=== PATIENT | female | born 1940 ===

== ENCOUNTER 2020-02-18 09:08 | Outpatient (CLI) | payer MEDICARE, SELFPAY ==
[2020-02-18 10:34] LABS: Thyroid Stimulating Hormone 0.15 uIU/mL (0.36-3.74)
== END 2020-02-18 09:09 | disposition home or self-care (01) ==
PROVIDERS: PCP Nurse Practitioner Family; Visit Provider Nurse Practitioner Family
DX: E03.9 Hypothyroidism, unspecified (principal)
CPT/HCPCS: 36415; 84443

== ENCOUNTER 2020-04-12 07:41 | Outpatient (CLI) | payer MEDICARE, SELFPAY | END 2020-04-12 07:42 | disposition home or self-care (01) | LOC: CHSLAB 07:43 | PROVIDERS: PCP Nurse Practitioner Family; Visit Provider Nurse Practitioner Family | DX: E03.8 Other specified hypothyroidism (principal) | CPT/HCPCS: 36415; 84443 ==

== ENCOUNTER 2020-04-21 07:24 | Outpatient (CLI) | payer MEDICARE, SELFPAY ==
[2020-04-21 07:40] LABS: Hematocrit 38.3 % (35.0-42.0); Hemoglobin 12.4 g/dL (11.7-13.8); Immature Platelet Fraction Pct 1.7 % (1.0-7.0); Immature Reticulocyte Fraction 11.5 % (2.0-16.52); Mean Corpuscular HGB Conc 32.4 g/dL (32.0-36.0); Mean Corpuscular Hemoglobin 31.7 pg (27.0-31.0); Mean Platelet Volume 9.5 fl (9.2-11.8); Platelet Count Result 279 K/mm3 (150-420); Red Blood Count 3.91 M/mm3 (4.20-5.40); Red Cell Distribution Width 13.5 % (11.6-14.4); Reticulocyte Hemoglobin Conten 34.5 pg (28.0-35.0); Reticulocyte Percent 2.04 % (0.50-1.50); Reticulocytes Absolute 0.08 M/mm3 (0.02-0.1); White Blood Count 3.5 K/mm3 (4.8-10.8)
[2020-04-21 08:27] LABS: Band Neutrophils Percent 0 % (0-6); Basophils Absolute Manual 0.03 K/mm3 (0-0.1); Basophils Percent Manual 1 % (0-1); Eosinophils Absolute Manual 0.24 K/mm3 (0.02-0.5); Eosinophils Percent Manual 7 % (1-6); Lymphocytes Absolute Manual 0.77 K/mm3 (1.1-4.5); Lymphocytes Percent Manual 22 % (18-44); Monocytes Absolute Manual 0.73 K/mm3 (0.1-0.90); Monocytes Percent Manual 21 % (3-9); Neutrophils Absolute Manual 1.71 K/mm3 (1.7-7.2); Neutrophils Percent Manual 49 % (46-73); Total Cells Counted 100
[2020-04-21 08:28] LABS: Platelet Estimate Adequate (Adequate)
[2020-04-21 09:10] LABS: Ferritin 49 ng/mL (8-252); Iron 37 ug/dL (50-170); Percent Iron Saturation 10 % (12-57)
== END 2020-04-21 07:25 | disposition home or self-care (01) ==
LOC: CHSLAB 07:27
PROVIDERS: PCP Nurse Practitioner Family
DX: C90.02 Multiple myeloma in relapse (principal)
CPT/HCPCS: 36415; 82728; 83540; 83550; 85025; 85046; 85055

== ENCOUNTER 2020-08-23 09:16 | Outpatient (CLI) | payer MEDICARE, SELFPAY ==
[2020-08-23 10:09] LABS: Thyroid Stimulating Hormone 0.16 uIU/mL (0.36-3.74)
== END 2020-08-23 09:17 | disposition home or self-care (01) ==
LOC: CHSLAB 09:18
PROVIDERS: PCP Nurse Practitioner Family; Visit Provider Nurse Practitioner Family
DX: E03.9 Hypothyroidism, unspecified (principal)
CPT/HCPCS: 36415; 84443

== ENCOUNTER 2020-10-19 08:00 | Outpatient (CLI) | payer MEDICARE, SELFPAY ==
[2020-10-19 09:49] LABS: Thyroid Stimulating Hormone 1.35 uIU/mL (0.36-3.74)
== END 2020-10-19 08:01 | disposition home or self-care (01) ==
LOC: CHSLAB 08:02
PROVIDERS: PCP Nurse Practitioner Family; Visit Provider Nurse Practitioner Family
DX: E03.9 Hypothyroidism, unspecified (principal)
CPT/HCPCS: 36415; 84443

== ENCOUNTER 2021-02-28 08:54 | Outpatient (CLI) | payer MEDICARE, SELFPAY ==
--- NOTE | 2021-02-28 09:31 | PC.NURSE ---
Pt to OP infusion center for blood draw from port. Pt tolerated well. Discharged to home ambulatory per self.
[2021-02-28 10:20] LABS: Basophils Absolute Auto 0.02 K/mm3 (0.00-0.10); Basophils Percent Auto 0.5 % (0.0-1.0); Eosinophils Absolute Auto 0.15 K/mm3 (0.02-0.50); Eosinophils Percent Auto 3.6 % (1.0-6.0); Hematocrit 36.6 % (35.0-42.0); Hemoglobin 12.7 g/dL (11.7-13.8); Immature Granulocyte Absolute 0.02 K/mm3 (0.00-0.00); Immature Granulocyte Percent A 0.5 % (0.0-0.0); Lymphocytes Absolute Auto 0.62 K/mm3 (1.10-4.50); Lymphocytes Percent Auto 15.1 % (18.0-42.0); Mean Corpuscular HGB Conc 34.7 g/dL (32.0-36.0); Mean Corpuscular Hemoglobin 33.1 pg (27.0-31.0); Mean Corpuscular Volume 95.3 fL (78.0-102.0); Mean Platelet Volume 10.4 fl (9.2-11.8); Monocytes Absolute Auto 0.56 K/mm3 (0.10-0.90); Monocytes Percent Auto 13.6 % (2.0-11.0); Neutrophils Absolute Auto 2.7 K/mm3 (1.7-7.2); Neutrophils Percent Auto 66.7 % (50.0-70.0); Platelet Count Result 243 K/mm3 (150-420); Red Blood Count 3.84 M/mm3 (4.20-5.40); White Blood Count 4.1 K/mm3 (4.8-10.8)
[2021-02-28 10:36] LABS: Alanine Aminotransferase 30 U/L (14-59); Albumin Level 3.4 g/dL (3.4-5.0); Alkaline Phosphatase 104 U/L (46-116); Anion Gap 13 mmol/L (8-16); Aspartate Amino Transferase 21 U/L (15-37); Bilirubin,Total 0.6 mg/dL (0.00-1.00); Blood Urea Nitrogen 21 mg/dL (7-18); Calcium 8.4 mg/dL (8.5-10.1); Carbon Dioxide 27 mmol/L (21-32); Chloride 105 mmol/L (98-108); Estimated Glomerular Filt Rate > 60; Glucose 105 mg/dL (70-99); Lactate Dehydrogenase 182 U/L (81-234); Osmolality Calculated 303 mOsm/kg (285-295); Potassium 3.9 mmol/L (3.5-5.1); Sodium 145 mmol/L (136-145); Total Protein 6.5 g/dL (6.4-8.2)
[2021-03-03 05:18] LABS: Kappa\\Lambda Light Chains 19.85 (0.26-1.65); Lambda Light Chain 2.6 mg/L (5.7-26.3)
[2021-03-03 10:31] LABS: Immunoglobulin A 28 mg/dL (70-320); Immunoglobulin G 1051 mg/dL (600-1540); Immunoglobulin M 18 mg/dL (50-300)
[2021-03-03 14:45] LABS: Abnormal Protein Band 1 0.8 g/dL; Albumin 3.6 g/dL (3.8-4.8); Alpha 1 Globulin 0.3 g/dL (0.2-0.3); Alpha 2 Globulin 0.8 g/dL (0.5-0.9); Beta 1 Globulin 0.5 g/dL (0.4-0.6); Protein, Total 6.4 g/dL (6.1-8.1)
== END 2021-02-28 08:55 | disposition home or self-care (01) ==
PROVIDERS: PCP Nurse Practitioner Family
DX: C90.00 Multiple myeloma not having achieved remission (principal)
CPT/HCPCS: 36415; 80053; 82784; 83615; 83883; 84155; 84165; 84550; 85025

== ENCOUNTER 2021-04-03 08:53 | Outpatient (CLI) | payer MEDICARE, SELFPAY ==
[2021-04-03 09:25] LABS: Hematocrit 36.2 % (35.0-42.0); Hemoglobin 12.1 g/dL (11.7-13.8); Mean Corpuscular HGB Conc 33.4 g/dL (32.0-36.0); Mean Corpuscular Hemoglobin 32.7 pg (27.0-31.0); Mean Corpuscular Volume 97.8 fL (78.0-102.0); Mean Platelet Volume 9.5 fl (9.2-11.8); Platelet Count Result 272 K/mm3 (150-420); Red Cell Distribution Width 13.2 % (11.6-14.4); White Blood Count 3.5 K/mm3 (4.8-10.8)
[2021-04-03 10:25] LABS: Alanine Aminotransferase 52 U/L (14-59); Albumin Level 3.3 g/dL (3.4-5.0); Alkaline Phosphatase 143 U/L (46-116); Anion Gap 11 mmol/L (8-16); Aspartate Amino Transferase 36 U/L (15-37); Bilirubin,Total 0.4 mg/dL (0.00-1.00); Blood Urea Nitrogen 25 mg/dL (7-18); Calcium 8.4 mg/dL (8.5-10.1); Carbon Dioxide 27 mmol/L (21-32); Chloride 107 mmol/L (98-108); Estimated Glomerular Filt Rate 58; Glucose 136 mg/dL (70-99); Lactate Dehydrogenase 199 U/L (81-234); Osmolality Calculated 306 mOsm/kg (285-295); Potassium 4.2 mmol/L (3.5-5.1); Sodium 145 mmol/L (136-145); Total Protein 7.2 g/dL (6.4-8.2); Uric Acid 4.9 mg/dL (2.6-6.0)
[2021-04-03 10:45] LABS: Band Neutrophils Percent 1 % (0-6); Basophils Absolute Manual 0.14 K/mm3 (0-0.1); Basophils Percent Manual 4 % (0-1); Eosinophils Absolute Manual 0.07 K/mm3 (0.02-0.5); Eosinophils Percent Manual 2 % (1-6); Lymphocytes Absolute Manual 0.59 K/mm3 (1.1-4.5); Lymphocytes Percent Manual 17 % (18-44); Monocytes Absolute Manual 0.38 K/mm3 (0.1-0.90); Monocytes Percent Manual 11 % (3-9); Neutrophils Absolute Manual 2.31 K/mm3 (1.7-7.2); Neutrophils Percent Manual 65 % (46-73); Total Cells Counted 100
[2021-04-03 10:46] LABS: Large Platelets Present; Platelet Estimate Adequate (Adequate)
[2021-04-05 20:46] LABS: Immunoglobulin A 28 mg/dL (70-320); Immunoglobulin G 1253 mg/dL (600-1540); Immunoglobulin M 17 mg/dL (50-300)
[2021-04-05 23:20] LABS: Kappa\\Lambda Light Chains 27.35 (0.26-1.65); Lambda Light Chain 2.6 mg/L (5.7-26.3)
[2021-04-07 05:45] LABS: Abnormal Protein Band 1 0.9 g/dL; Albumin 3.3 g/dL (3.8-4.8); Alpha 1 Globulin 0.3 g/dL (0.2-0.3); Alpha 2 Globulin 0.9 g/dL (0.5-0.9); Beta 1 Globulin 0.4 g/dL (0.4-0.6); Gamma Globulin 1.1 g/dL (0.8-1.7); Protein, Total 6.2 g/dL (6.1-8.1)
== END 2021-04-03 08:54 | disposition home or self-care (01) ==
LOC: CHSLAB 08:58 → CHSTREATRM 09:04
PROVIDERS: PCP Nurse Practitioner Family
DX: C90.00 Multiple myeloma not having achieved remission (principal)
CPT/HCPCS: 36415; 80053; 82784; 83615; 83883; 84155; 84165; 84550; 85025

== ENCOUNTER 2021-07-25 10:20 | Outpatient (CLI) | payer MEDICARE, SELFPAY ==
[2021-07-25 11:15] LABS: Free T4 Free Thyroxine 1.12 ng/dL (0.76-1.46); Thyroid Stimulating Hormone 0.75 uIU/mL (0.36-3.74)
== END 2021-07-25 10:21 | disposition home or self-care (01) ==
LOC: CHSLAB 10:22
PROVIDERS: PCP Nurse Practitioner Family; Visit Provider Nurse Practitioner Family
DX: E03.9 Hypothyroidism, unspecified (principal)
CPT/HCPCS: 36415; 84439; 84443

== ENCOUNTER 2022-01-14 08:13 | Outpatient (CLI) | payer MEDICARE, SELFPAY ==
[2022-01-14 08:26] LABS: Hematocrit 33.3 % (35.0-42.0); Hemoglobin 11.1 g/dL (11.7-13.8); Mean Corpuscular HGB Conc 33.3 g/dL (32.0-36.0); Mean Corpuscular Hemoglobin 34.2 pg (27.0-31.0); Mean Corpuscular Volume 102.5 fL (78.0-102.0); Mean Platelet Volume 9.6 fl (9.2-11.8); Platelet Count Result 178 K/mm3 (150-420); Red Blood Count 3.25 M/mm3 (4.20-5.40); Red Cell Distribution Width 13.5 % (11.6-14.4); White Blood Count 2.9 K/mm3 (4.8-10.8)
[2022-01-14 08:44] LABS: Band Neutrophils Percent 0 % (0-6); Lymphocytes Absolute Manual 0.58 K/mm3 (1.1-4.5); Lymphocytes Percent Manual 20 % (18-44); Monocytes Percent Manual 21 % (3-9); Neutrophils Absolute Manual 1.59 K/mm3 (1.7-7.2); Neutrophils Percent Manual 55 % (46-73); Total Cells Counted 100
[2022-01-14 08:45] LABS: Basophils Absolute Manual 0.02 K/mm3 (0-0.1); Basophils Percent Manual 1 % (0-1); Eosinophils Absolute Manual 0.08 K/mm3 (0.02-0.5); Eosinophils Percent Manual 3 % (1-6); Platelet Estimate Adequate (Adequate)
== END 2022-01-14 08:14 | disposition home or self-care (01) ==
LOC: CHSLAB 08:16
PROVIDERS: PCP Nurse Practitioner Family
DX: C90.00 Multiple myeloma not having achieved remission (principal)
CPT/HCPCS: 36415; 85025

== ENCOUNTER 2022-02-28 08:33 | Outpatient (CLI) | payer MEDICARE, SELFPAY ==
[2022-02-28 09:10] LABS: Basophils Absolute Auto 0.02 K/mm3 (0.00-0.10); Basophils Percent Auto 0.5 % (0.0-1.0); Eosinophils Absolute Auto 0.04 K/mm3 (0.02-0.50); Hematocrit 29.1 % (35.0-42.0); Immature Granulocyte Absolute 0.01 K/mm3 (0.00-0.00); Immature Granulocyte Percent A 0.2 % (0.0-0.0); Lymphocytes Absolute Auto 0.47 K/mm3 (1.10-4.50); Lymphocytes Percent Auto 11.2 % (18.0-42.0); Mean Corpuscular HGB Conc 34.4 g/dL (32.0-36.0); Mean Corpuscular Hemoglobin 34.8 pg (27.0-31.0); Mean Corpuscular Volume 101.4 fL (78.0-102.0); Mean Platelet Volume 10.1 fl (9.2-11.8); Monocytes Percent Auto 14.4 % (2.0-11.0); Neutrophils Percent Auto 72.7 % (50.0-70.0); Platelet Count Result 182 K/mm3 (150-420); Red Blood Count 2.87 M/mm3 (4.20-5.40); Red Cell Distribution Width 12.8 % (11.6-14.4); White Blood Count 4.2 K/mm3 (4.8-10.8)
[2022-02-28 09:36] LABS: Alanine Aminotransferase 45 U/L (14-59); Albumin Level 3.2 g/dL (3.4-5.0); Alkaline Phosphatase 128 U/L (46-116); Anion Gap 6 mmol/L (8-16); Aspartate Amino Transferase 31 U/L (15-37); Bilirubin,Total 0.5 mg/dL (0.00-1.00); Blood Urea Nitrogen 33 mg/dL (7-18); Calcium 8.4 mg/dL (8.5-10.1); Carbon Dioxide 28 mmol/L (21-32); Chloride 107 mmol/L (98-108); Estimated Glomerular Filt Rate 46; Glucose 101 mg/dL (70-99); Lactate Dehydrogenase 176 U/L (81-234); Osmolality Calculated 299 mOsm/kg (285-295); Potassium 4.1 mmol/L (3.5-5.1); Sodium 141 mmol/L (136-145); Total Protein 6.4 g/dL (6.4-8.2)
--- NOTE | 2022-02-28 09:52 | PC.NURSE ---
Called to lab to draw blood from port. Good blood return. Labs drawn. Tolerated well. Safe exit of lab.
[2022-03-03 23:26] LABS: Abnormal Protein Band 1 0.2 g/dL; Albumin 3.4 g/dL (3.8-4.8); Alpha 1 Globulin 0.3 g/dL (0.2-0.3); Alpha 2 Globulin 0.8 g/dL (0.5-0.9); Beta 1 Globulin 0.4 g/dL (0.4-0.6); Gamma Globulin 0.8 g/dL (0.8-1.7); Protein, Total 5.9 g/dL (6.1-8.1)
[2022-03-04 09:24] LABS: Kappa\\Lambda Light Chains 3.64 (0.26-1.65); Lambda Light Chain 9.6 mg/L (5.7-26.3)
[2022-03-04 16:29] LABS: Immunoglobulin A 112 mg/dL (70-320); Immunoglobulin G 847 mg/dL (600-1540); Immunoglobulin M 26 mg/dL (50-300)
== END 2022-02-28 08:34 | disposition home or self-care (01) ==
LOC: CHSTREATRM 08:40
PROVIDERS: PCP Nurse Practitioner Family
DX: C90.00 Multiple myeloma not having achieved remission (principal)
CPT/HCPCS: 36415; 36592; 80053; 82784; 83615; 83883; 84155; 84165; 85025

== ENCOUNTER 2022-04-26 08:14 | Outpatient (CLI) | payer MEDICARE, SELFPAY ==
[2022-04-26 08:41] LABS: Hematocrit 30.2 % (35.0-42.0); Hemoglobin 10.3 g/dL (11.7-13.8); Mean Corpuscular HGB Conc 34.1 g/dL (32.0-36.0); Mean Corpuscular Hemoglobin 35.9 pg (27.0-31.0); Mean Corpuscular Volume 105.2 fL (78.0-102.0); Mean Platelet Volume 10.2 fl (9.2-11.8); Platelet Count Result 186 K/mm3 (150-420); Red Blood Count 2.87 M/mm3 (4.20-5.40); Red Cell Distribution Width 12.6 % (11.6-14.4); White Blood Count 2.4 K/mm3 (4.8-10.8)
[2022-04-26 08:59] LABS: Alanine Aminotransferase 50 U/L (14-59); Albumin Level 3.4 g/dL (3.4-5.0); Alkaline Phosphatase 125 U/L (46-116); Anion Gap 8 mmol/L (8-16); Aspartate Amino Transferase 39 U/L (15-37); Bilirubin,Total 0.4 mg/dL (0.00-1.00); Blood Urea Nitrogen 29 mg/dL (7-18); Calcium 8.7 mg/dL (8.5-10.1); Carbon Dioxide 28 mmol/L (21-32); Chloride 105 mmol/L (98-108); Estimated Glomerular Filt Rate 47; Glucose 137 mg/dL (70-99); Lactate Dehydrogenase 196 U/L (81-234); Osmolality Calculated 299 mOsm/kg (285-295); Sodium 141 mmol/L (136-145); Total Protein 6.4 g/dL (6.4-8.2)
[2022-04-26 11:26] LABS: Band Neutrophils Percent 0 % (0-6); Basophils Percent Manual 0 % (0-1); Eosinophils Percent Manual 0 % (1-6); Lymphocytes Absolute Manual 0.57 K/mm3 (1.1-4.5); Lymphocytes Percent Manual 24 % (18-44); Monocytes Absolute Manual 0.38 K/mm3 (0.1-0.90); Monocytes Percent Manual 16 % (3-9); Neutrophils Absolute Manual 1.44 K/mm3 (1.7-7.2); Neutrophils Percent Manual 60 % (46-73); Platelet Estimate Adequate (Adequate); Total Cells Counted 100
[2022-04-30 21:42] LABS: Kappa\\Lambda Light Chains 4.22 (0.26-1.65); Lambda Light Chain 8.9 mg/L (5.7-26.3)
[2022-04-30 23:45] LABS: Abnormal Protein Band 1 0.3 g/dL; Albumin 3.7 g/dL (3.8-4.8); Alpha 1 Globulin 0.3 g/dL (0.2-0.3); Alpha 2 Globulin 0.8 g/dL (0.5-0.9); Beta 1 Globulin 0.4 g/dL (0.4-0.6); Gamma Globulin 0.8 g/dL (0.8-1.7); Protein, Total 6.2 g/dL (6.1-8.1)
[2022-05-01 14:06] LABS: Immunoglobulin A 99 mg/dL (70-320); Immunoglobulin G 848 mg/dL (600-1540); Immunoglobulin M 38 mg/dL (50-300)
== END 2022-04-26 08:15 | disposition home or self-care (01) ==
LOC: CHSLAB 08:20
PROVIDERS: PCP Nurse Practitioner Family
DX: C90.00 Multiple myeloma not having achieved remission (principal)
CPT/HCPCS: 36415; 80053; 82784; 83615; 83883; 84155; 84165; 85025

== ENCOUNTER 2022-06-19 07:42 | Outpatient (CLI) | payer MEDICARE, SELFPAY ==
[2022-06-19 08:07] LABS: Hematocrit 31.6 % (35.0-42.0); Hemoglobin 10.7 g/dL (11.7-13.8); Mean Corpuscular HGB Conc 33.9 g/dL (32.0-36.0); Mean Corpuscular Hemoglobin 35.7 pg (27.0-31.0); Mean Corpuscular Volume 105.3 fL (78.0-102.0); Mean Platelet Volume 9.7 fl (9.2-11.8); Platelet Count Result 202 K/mm3 (150-420); Red Cell Distribution Width 12.7 % (11.6-14.4); White Blood Count 3.1 K/mm3 (4.8-10.8)
[2022-06-19 08:54] LABS: Alanine Aminotransferase 65 U/L (14-59); Albumin Level 3.5 g/dL (3.4-5.0); Alkaline Phosphatase 138 U/L (46-116); Anion Gap 7 mmol/L (8-16); Aspartate Amino Transferase 37 U/L (15-37); Bilirubin,Total 0.5 mg/dL (0.00-1.00); Blood Urea Nitrogen 35 mg/dL (7-18); Calcium 8.5 mg/dL (8.5-10.1); Carbon Dioxide 30 mmol/L (21-32); Chloride 104 mmol/L (98-108); Estimated Glomerular Filt Rate 42; Glucose 131 mg/dL (70-99); Lactate Dehydrogenase 211 U/L (81-234); Osmolality Calculated 302 mOsm/kg (285-295); Potassium 3.7 mmol/L (3.5-5.1); Sodium 141 mmol/L (136-145); Total Protein 6.6 g/dL (6.4-8.2)
[2022-06-19 10:04] LABS: Total Cells Counted 100
[2022-06-19 10:05] LABS: Band Neutrophils Percent 1 % (0-6); Eosinophils Absolute Manual 0.03 K/mm3 (0.02-0.5); Eosinophils Percent Manual 1 % (1-6); Lymphocytes Absolute Manual 0.55 K/mm3 (1.1-4.5); Lymphocytes Percent Manual 18 % (18-44); Monocytes Absolute Manual 0.27 K/mm3 (0.1-0.90); Monocytes Percent Manual 9 % (3-9); Neutrophils Absolute Manual 2.23 K/mm3 (1.7-7.2); Neutrophils Percent Manual 71 % (46-73); Platelet Estimate Adequate (Adequate)
[2022-06-19 10:06] LABS: Schistocytes None Seen (NORMAL)
[2022-06-22 17:16] LABS: Abnormal Protein Band 1 0.4 g/dL; Albumin 3.7 g/dL (3.8-4.8); Alpha 1 Globulin 0.3 g/dL (0.2-0.3); Alpha 2 Globulin 0.8 g/dL (0.5-0.9); Beta 1 Globulin 0.4 g/dL (0.4-0.6); Gamma Globulin 0.8 g/dL (0.8-1.7); Protein, Total 6.3 g/dL (6.1-8.1)
[2022-06-23 00:15] LABS: Immunoglobulin A 98 mg/dL (70-320); Immunoglobulin G 944 mg/dL (600-1540); Immunoglobulin M 47 mg/dL (50-300)
[2022-06-24 17:49] LABS: Kappa\\Lambda Light Chains 5.48 (0.26-1.65); Lambda Light Chain 8.7 mg/L (5.7-26.3)
== END 2022-06-19 07:43 | disposition home or self-care (01) ==
LOC: CHSLAB 07:49
PROVIDERS: PCP Nurse Practitioner Family
DX: C90.00 Multiple myeloma not having achieved remission (principal)
CPT/HCPCS: 36415; 80053; 82784; 83615; 83883; 84155; 84165; 85025

== ENCOUNTER 2022-08-26 08:37 | Outpatient (CLI) | payer MEDICARE, SELFPAY ==
[2022-08-26 09:10] LABS: Hematocrit 30.9 % (35.0-42.0); Hemoglobin 10.5 g/dL (11.7-13.8); Mean Corpuscular Hemoglobin 35.6 pg (27.0-31.0); Mean Corpuscular Volume 104.7 fL (78.0-102.0); Platelet Count Result 183 K/mm3 (150-420); Red Blood Count 2.95 M/mm3 (4.20-5.40); Red Cell Distribution Width 12.7 % (11.6-14.4); White Blood Count 2.7 K/mm3 (4.8-10.8)
[2022-08-26 09:30] LABS: Band Neutrophils Percent 0 % (0-6); Eosinophils Absolute Manual 0.05 K/mm3 (0.02-0.5); Eosinophils Percent Manual 2 % (1-6); Lymphocytes Absolute Manual 0.75 K/mm3 (1.1-4.5); Lymphocytes Percent Manual 28 % (18-44); Monocytes Absolute Manual 0.35 K/mm3 (0.1-0.90); Monocytes Percent Manual 13 % (3-9); Neutrophils Absolute Manual 1.53 K/mm3 (1.7-7.2); Neutrophils Percent Manual 57 % (46-73); Platelet Estimate Adequate (Adequate); Total Cells Counted 100
[2022-08-26 09:41] LABS: Alanine Aminotransferase 34 U/L (14-59); Albumin Level 3.3 g/dL (3.4-5.0); Alkaline Phosphatase 85 U/L (46-116); Anion Gap 6 mmol/L (8-16); Aspartate Amino Transferase 24 U/L (15-37); Bilirubin,Total 0.5 mg/dL (0.00-1.00); Blood Urea Nitrogen 32 mg/dL (7-18); Calcium 7.9 mg/dL (8.5-10.1); Carbon Dioxide 28 mmol/L (21-32); Chloride 107 mmol/L (98-108); Estimated Glomerular Filt Rate 40; Glucose 155 mg/dL (70-99); Lactate Dehydrogenase 173 U/L (81-234); Osmolality Calculated 301 mOsm/kg (285-295); Potassium 3.7 mmol/L (3.5-5.1); Sodium 141 mmol/L (136-145); Total Protein 6.3 g/dL (6.4-8.2)
[2022-08-28 12:29] LABS: Immunoglobulin A 85 mg/dL (70-320); Immunoglobulin G 935 mg/dL (600-1540); Immunoglobulin M 45 mg/dL (50-300)
[2022-08-28 14:09] LABS: Abnormal Protein Band 1 0.4 g/dL; Albumin 3.6 g/dL (3.8-4.8); Alpha 1 Globulin 0.3 g/dL (0.2-0.3); Alpha 2 Globulin 0.7 g/dL (0.5-0.9); Beta 1 Globulin 0.4 g/dL (0.4-0.6); Gamma Globulin 0.9 g/dL (0.8-1.7); Protein, Total 6.2 g/dL (6.1-8.1)
[2022-08-29 04:30] LABS: Kappa\\Lambda Light Chains 7.74 (0.26-1.65); Lambda Light Chain 8.6 mg/L (5.7-26.3)
== END 2022-08-26 08:38 | disposition home or self-care (01) ==
LOC: CHSLAB 08:45
PROVIDERS: PCP Nurse Practitioner Family
DX: C90.00 Multiple myeloma not having achieved remission (principal)
CPT/HCPCS: 36415; 80053; 82784; 83615; 83883; 84155; 84165; 85025

== ENCOUNTER 2022-09-06 07:46 | Outpatient (CLI) | payer MEDICARE, SELFPAY ==
[2022-09-06 08:46] LABS: Alanine Aminotransferase 32 U/L (14-59); Albumin Level 3.5 g/dL (3.4-5.0); Alkaline Phosphatase 92 U/L (46-116); Anion Gap 7 mmol/L (8-16); Aspartate Amino Transferase 27 U/L (15-37); Bilirubin,Total 0.4 mg/dL (0.00-1.00); Blood Urea Nitrogen 39 mg/dL (7-18); Calcium 8.3 mg/dL (8.5-10.1); Carbon Dioxide 26 mmol/L (21-32); Chloride 105 mmol/L (98-108); Estimated Glomerular Filt Rate 43; Glucose 103 mg/dL (70-99); Osmolality Calculated 295 mOsm/kg (285-295); Potassium 3.8 mmol/L (3.5-5.1); Sodium 138 mmol/L (136-145); Total Protein 6.6 g/dL (6.4-8.2)
[2022-09-10 09:24] LABS: Vitamin D 25 Hydroxy 32 ng/mL (30-100)
[2022-09-10 20:24] LABS: Ionized Calcium 4.8 mg/dL (4.8-5.6)
== END 2022-09-06 07:47 | disposition home or self-care (01) ==
LOC: CHSLAB 07:51
PROVIDERS: PCP Nurse Practitioner Family
DX: C90.00 Multiple myeloma not having achieved remission (principal); E55.9 Vitamin D deficiency, unspecified
CPT/HCPCS: 36415; 80053; 82306; 82330

== ENCOUNTER 2022-10-23 06:57 | Outpatient (CLI) | payer MEDICARE, SELFPAY ==
[2022-10-23 07:24] LABS: Hematocrit 29.4 % (35.0-42.0); Mean Corpuscular Hemoglobin 36.1 pg (27.0-31.0); Mean Corpuscular Volume 106.1 fL (78.0-102.0); Mean Platelet Volume 9.9 fl (9.2-11.8); Platelet Count Result 188 K/mm3 (150-420); Red Blood Count 2.77 M/mm3 (4.20-5.40); Red Cell Distribution Width 12.9 % (11.6-14.4); White Blood Count 2.3 K/mm3 (4.8-10.8)
[2022-10-23 07:41] LABS: Band Neutrophils Percent 0 % (0-6); Basophils Absolute Manual 0.04 K/mm3 (0-0.1); Basophils Percent Manual 2 % (0-1); Eosinophils Absolute Manual 0.02 K/mm3 (0.02-0.5); Eosinophils Percent Manual 1 % (1-6); Lymphocytes Absolute Manual 0.71 K/mm3 (1.1-4.5); Lymphocytes Percent Manual 31 % (18-44); Monocytes Absolute Manual 0.32 K/mm3 (0.1-0.90); Monocytes Percent Manual 14 % (3-9); Neutrophils Absolute Manual 1.19 K/mm3 (1.7-7.2); Neutrophils Percent Manual 52 % (46-73); Platelet Estimate Adequate (Adequate); Total Cells Counted 100
[2022-10-23 08:02] LABS: Alanine Aminotransferase 33 U/L (14-59); Albumin Level 3.2 g/dL (3.4-5.0); Alkaline Phosphatase 86 U/L (46-116); Anion Gap 9 mmol/L (8-16); Aspartate Amino Transferase 28 U/L (15-37); Bilirubin,Total 0.4 mg/dL (0.00-1.00); Blood Urea Nitrogen 34 mg/dL (7-18); Calcium 8.2 mg/dL (8.5-10.1); Carbon Dioxide 27 mmol/L (21-32); Chloride 106 mmol/L (98-108); Estimated Glomerular Filt Rate 45; Glucose 140 mg/dL (70-99); Lactate Dehydrogenase 176 U/L (81-234); Osmolality Calculated 303 mOsm/kg (285-295); Potassium 3.7 mmol/L (3.5-5.1); Sodium 142 mmol/L (136-145); Total Protein 6.6 g/dL (6.4-8.2)
--- NOTE | 2022-10-23 09:32 | PC.NURSE ---
[id number] Patient here for labs. Request to have them drawn via port a cath. Port accessed, labs drawn, flushed per protocol, and deacessed-see Vascular assessment. Left subclavian port site asystomatic of infection. Tolerated well.
[2022-10-25 20:05] LABS: Kappa\\Lambda Light Chains 11.61 (0.26-1.65); Lambda Light Chain 7.7 mg/L (5.7-26.3)
[2022-10-26 15:49] LABS: Abnormal Protein Band 1 0.6 g/dL; Albumin 3.5 g/dL (3.8-4.8); Alpha 1 Globulin 0.3 g/dL (0.2-0.3); Alpha 2 Globulin 0.8 g/dL (0.5-0.9); Beta 1 Globulin 0.4 g/dL (0.4-0.6); Protein, Total 6.1 g/dL (6.1-8.1)
[2022-10-26 19:37] LABS: Immunoglobulin A 64 mg/dL (70-320); Immunoglobulin G 1016 mg/dL (600-1540); Immunoglobulin M 40 mg/dL (50-300)
== END 2022-10-23 06:58 | disposition home or self-care (01) ==
LOC: CHSLAB 07:00
PROVIDERS: PCP Nurse Practitioner Family
DX: C90.00 Multiple myeloma not having achieved remission (principal)
CPT/HCPCS: 36415; 36592; 80053; 82784; 83615; 83883; 84155; 84165; 85025

== ENCOUNTER 2022-11-05 08:12 | Outpatient (CLI) | payer MEDICARE, SELFPAY ==
[2022-11-05 08:27] LABS: Hematocrit 32.2 % (35.0-42.0); Hemoglobin 10.9 g/dL (11.7-13.8); Mean Corpuscular HGB Conc 33.9 g/dL (32.0-36.0); Mean Corpuscular Hemoglobin 35.6 pg (27.0-31.0); Mean Corpuscular Volume 105.2 fL (78.0-102.0); Mean Platelet Volume 9.8 fl (9.2-11.8); Platelet Count Result 174 K/mm3 (150-420); Red Blood Count 3.06 M/mm3 (4.20-5.40); Red Cell Distribution Width 12.7 % (11.6-14.4); White Blood Count 2.6 K/mm3 (4.8-10.8)
[2022-11-05 08:48] LABS: Band Neutrophils Percent 0 % (0-6); Lymphocytes Absolute Manual 0.62 K/mm3 (1.1-4.5); Lymphocytes Percent Manual 24 % (18-44); Monocytes Absolute Manual 0.36 K/mm3 (0.1-0.90); Monocytes Percent Manual 14 % (3-9); Neutrophils Absolute Manual 1.61 K/mm3 (1.7-7.2); Neutrophils Percent Manual 62 % (46-73); Platelet Estimate Adequate (Adequate); Total Cells Counted 100
== END 2022-11-05 08:13 | disposition home or self-care (01) ==
LOC: CHSLAB 08:16
PROVIDERS: PCP Nurse Practitioner Family
DX: C90.00 Multiple myeloma not having achieved remission (principal)
CPT/HCPCS: 36415; 85025

== ENCOUNTER 2022-12-17 08:41 | Outpatient (CLI) | payer MEDICARE, SELFPAY ==
[2022-12-17 08:57] LABS: Basophils Absolute Auto 0.02 K/mm3 (0.00-0.10); Basophils Percent Auto 0.5 % (0.0-1.0); Eosinophils Absolute Auto 0.12 K/mm3 (0.02-0.50); Eosinophils Percent Auto 2.9 % (1.0-6.0); Hematocrit 29.9 % (35.0-42.0); Hemoglobin 10.1 g/dL (11.7-13.8); Immature Granulocyte Absolute 0.06 K/mm3 (0.00-0.00); Immature Granulocyte Percent A 1.5 % (0.0-0.0); Lymphocytes Absolute Auto 0.39 K/mm3 (1.10-4.50); Lymphocytes Percent Auto 9.4 % (18.0-42.0); Mean Corpuscular HGB Conc 33.8 g/dL (32.0-36.0); Mean Corpuscular Hemoglobin 36.1 pg (27.0-31.0); Mean Corpuscular Volume 106.8 fL (78.0-102.0); Monocytes Absolute Auto 0.59 K/mm3 (0.10-0.90); Monocytes Percent Auto 14.3 % (2.0-11.0); Neutrophils Percent Auto 71.4 % (50.0-70.0); Platelet Count Result 188 K/mm3 (150-420); Red Cell Distribution Width 13.2 % (11.6-14.4); White Blood Count 4.1 K/mm3 (4.8-10.8)
[2022-12-17 09:39] LABS: Alanine Aminotransferase 62 U/L (14-59); Albumin Level 2.9 g/dL (3.4-5.0); Alkaline Phosphatase 121 U/L (46-116); Anion Gap 9 mmol/L (8-16); Aspartate Amino Transferase 38 U/L (15-37); Bilirubin,Total 0.3 mg/dL (0.00-1.00); Blood Urea Nitrogen 37 mg/dL (7-18); Calcium 8.8 mg/dL (8.5-10.1); Carbon Dioxide 28 mmol/L (21-32); Chloride 104 mmol/L (98-108); Estimated Glomerular Filt Rate 37; Glucose 136 mg/dL (70-99); Osmolality Calculated 302 mOsm/kg (285-295); Potassium 4.3 mmol/L (3.5-5.1); Sodium 141 mmol/L (136-145); Total Protein 5.8 g/dL (6.4-8.2)
== END 2022-12-17 08:42 | disposition home or self-care (01) ==
LOC: CHSLAB 08:47
PROVIDERS: PCP Nurse Practitioner Family
DX: C90.00 Multiple myeloma not having achieved remission (principal)
CPT/HCPCS: 36415; 80053; 85025

== ENCOUNTER 2023-05-25 15:31 | Inpatient (IN) | payer MEDICARE, SELFPAY ==
[2023-05-25] VITALS (13 sets, daily range): BP systolic 123–138; BP diastolic 41–97; PULSE 82–96; RESP 15–20; TEMP 36.9–37.7; O2SAT 91–98; BMI 29.5
--- NOTE | ~2023-05-25 | XR_ITS ---
EXAMINATION: XR chest 2V Exam Date/Time: 05/25/2023 15:40 CDT HISTORY: COUGH/FEVER X 4 WEEKS/HX OF MULTIPLE MYELOMA Comparison: 06/15/2018. RESULT: Lines, tubes, and devices: Left chest implanted port terminating in the SVC. Coronary artery stent. Lungs and pleura: Patchy subsegmental bilateral lower lung airspace opacities. Senescent change. Cardiomediastinal silhouette: Stable. Other: No acute osseous or upper abdominal finding. IMPRESSION: Subsegmental bibasilar airspace disease, may represent atelectasis or the consolidation of pneumonia. Reviewed, dictated and finalized at location K. IMPRESSION: Subsegmental bibasilar airspace disease, may represent atelectasis or the conso lidation of pneumonia.
--- NOTE | ~2023-05-25 | US_ITS ---
EXAMINATION: US venous doppler [facility] DATE: 05/26/2023 09:26 INDICATION: Cough and fever. Positive d-dimer. TECHNIQUE: Grayscale ultrasound images without and with compression and Doppler ultrasound images of the bilateral lower extremity veins were obtained. COMPARISON: Ultrasound 11/23/2009 FINDINGS: The visualized portions of right common femoral vein, profunda (deep) femoral vein, femoral vein, pop liteal vein, peroneal veins, posterior tibial veins, and greater saphenous vein outflow are patent. The visualized portions of left common femoral vein, profunda femoral vein, femoral vein, popliteal v ein, peroneal veins, posterior tibial veins, and greater saphenous vein outflow are patent. IMPRESSION: 1. No deep venous thrombosis. Reviewed, dictated and finalized at location E.
--- NOTE | ~2023-05-25 | CT_ITS ---
Non-contrast Head CT History: Head trauma, hallucinations Technique: Axial non-contrast imaging of the brain was performed. Dose reduction technique was used on this scan by utilizing automated exposure control and iterative reconstruction technique. The dose -length product (DLP) was 681.00 mGy-cm. Findings: There is no evidence of intracranial hemorrhage, mass lesion, or acute infarct. Brain par enchyma appears normal. The ventricles and subarachnoid spaces are normal in size. The calvarium ap pears normal. There is mild right maxillary sinus disease. The remaining visualized paranasal sinuses and mastoid air cells are clear. Impression: No intracranial abnormality seen. Right maxillary sinus disease. Reviewed, dictated and finalized at location . Impression: No intracranial abnormality seen. Right maxillary sinus disease.
--- NOTE | ~2023-05-25 | NM_ITS ---
EXAMINATION: NM pulmonary perfusion DATE: 05/26/2023 08:52 INDICATION: Cough and fever. COVID-19 positive. TECHNIQUE: 5.6 mCi Tc-99m MAA was administered intravenously for perfusion images. Scintigraphic jaymie ges of the chest were obtained. COMPARISON: Chest 2 views 05/25/2023 FINDINGS: Perfusion images show small defects in left lower lobe. IMPRESSION: 1. Pulmonary embolism absent (very low probability). Reviewed, dictated and finalized at location E.
--- NOTE | ~2023-05-25 | XR_ITS ---
Portable chest x-ray Comparison: 05/25/2023 Clinical History: Shortness of breath Findings: Left-sided Mediport is unchanged. There is worsening hazy and interstitial pulmonary disea se. There is relative sparing of the right upper lobe. Cardiomediastinal silhouette is stable. Bones and soft tissues are unremarkable. Impression: Worsening hazy and interstitial pulmonary disease, suggestive of worsening pulmonary edema. Correlate clinically for infection. Stable support line. Reviewed, dictated and finalized at location . Impression: Worsening hazy and interstitial pulmonary disease, suggestive of worsening pulm onary edema. Correlate clinically for infection. Stable support line.
--- NOTE | 2023-05-25 15:39 | ECG_ITS ---
Measurements Intervals [place] Rate: 92 P: 44 WA: 171 QRS: 35 QRSD: 82 T: 36 QT: 350 QTc: 434 Interpretive Statements SINUS RHYTHM WITHIN NORMAL LIMITS NO PREVIOUS ECG AVAILABLE FOR COMPARISON Electronically Signed On 05-26-2023 13:45:59 CDT by Manny Corey M.D.
--- NOTE | 2023-05-25 15:51 | ED.SOB ---
HPI - SOB/Dyspnea General Chief Complaint: Shortness of Breath/Dyspnea Stated Complaint: URI Time Seen by Provider: 05/25/23 15:38 Source: patient Mode of arrival: ambulatory Limitations: no limitations History of Present Illness HPI Narrative: patient is an 83-year-old female with multiple myeloma and CHF here for shortness of breath for the past 5 weeks. She is on a new drug regimen for multiple myeloma which dropped her immune system. She has not taken it however for the past week and a half which she normally takes weekly. She started to feel worse in the past couple days and presents to the emergency room today. She is on Bactrim to prevent lung disease with her treatment. MD elicited complaint: shortness of breath and cough Pertinent past history: congestive heart failure and other ( CHF and multiple myeloma /active treat) Onset (ago): week(s) (5) Context: recent illness Timing: constant and progressively worsening Severity: moderate Exacerbating factors: recent new medication Relieving factors: nothing Known history of: congestive heart failure Associated symptoms: cough and chest congestion Treatment prior to arrival: none Related Data Home oxygen amount: none Home Medications Medication Instructions Recorded Confirmed atorvastatin 40 mg tablet 20 mg PO DAILY 02/14/20 05/25/23 furosemide 40 mg tablet 40 mg PO QAM 02/14/20 05/25/23 meclizine 12.5 mg tablet 12.5 mg PO TID 02/14/20 05/25/23 potassium chloride 10 mEq 10 meq PO BID 02/14/20 05/25/23 capsule,extended release carvedilol 6.25 mg tablet 6.25 mg PO Q12H 10/11/21 05/25/23 cholecalciferol (vitamin D3) 50 50 mcg PO DAILY 10/11/21 05/25/23 mcg (2,000 unit) tablet nifedipine 30 mg tablet,extended 30 mg PO DAILY 10/11/21 05/25/23 release 24 hr nifedipine 60 mg tablet,extended 60 mg PO DAILY 10/11/21 05/25/23 release allopurinol 300 mg tablet 300 mg PO DAILY 05/25/23 05/25/23 levothyroxine 125 mcg tablet 125 mcg PO DAILY 05/25/23 05/25/23 (Synthroid) Allergies Allergy/AdvReac Type Severity Reaction Status Date / Time codeine Allergy Intermediate Unknown Verified 05/25/23 15:44 Review of Systems Review of Systems: All systems reviewed & are unremarkable except as noted in HPI and below Constitutional: Constitutional: Reports no additional constitutional complaints Eyes: Eyes: Reports no additional eye complaints ENT: Reports system reviewed and no additional complaints, except as documented Cardiovascular: Cardiovascular: Reports no additional cardiovascular complaints Respiratory: Respiratory: Reports no additional respiratory complaints Gastrointestinal: Gastrointestinal: Reports no additional gastrointestinal complaints Genitourinary: Genitourinary: Reports no additional female genitourinary complaints Musculoskeletal: Musculoskeletal: Reports no additional musculoskeletal complaints Integumentary/Breasts: Skin/Breast: Reports system reviewed and no additional complaints, except as docu Neurologic: Reports system reviewed and no additional complaints, except as documented Psychiatric: Psychiatric: Reports no additional psychiatric complaints Endocrine: Endocrine: Reports no additional endocrine complaints Hematologic/Lymphatic: Hematologic/Lymphatic: Reports no additional hematologic/lymphatic complaints Allergic/Immunologic: Allergic/Immunologic: Reports no additional allergic/immunologic complaints PMFSH Past Medical History Medical History Bowel obstruction 06/03/2018 CHF (congestive heart failure) Due to cancer Chronic back pain Legs, feet, and hands GERD (gastroesophageal reflux disease) HTN (hypertension) Hx of myocardial infarction 3 stents 2017 Hypothyroidism Meniere disease Positive depression screening Surgical History Surgical History Hx of hysterectomy 1983 Family History Family Hist
[2023-05-25 16:26] LABS: Base Excess ABG -1.5 mmol/L (0-2); HCO3 ABG 20.8 mmol/L (23-29); Oxygen Saturation ABG 93.6 % (95-97); Oxyhemoglobin 93.3 % (94-100); PO2 ABG 65.2 mmHg (75-85); Total Hemoglobin 9.9 g/dL (12.0-18.0); pH ABG 7.51 (7.35-7.45)
[2023-05-25 16:31] LABS: Influenza A QL RT-PCR Negative (Negative); Influenza B QL RT-PCR Negative (Negative); SARS-CoV-2 RNA PCR Positive (Negative)
[2023-05-25 16:32] LABS: Basophils Absolute Auto 0.01 K/mm3 (0.00-0.10); Basophils Percent Auto 0.2 % (0.0-1.0); Device ROOM AIR; Eosinophils Absolute Auto 0.01 K/mm3 (0.02-0.50); Eosinophils Percent Auto 0.2 % (1.0-6.0); Hematocrit 28.5 % (35.0-42.0); Hemoglobin 9.6 g/dL (11.7-13.8); Immature Granulocyte Absolute 0.08 K/mm3 (0.00-0.00); Immature Granulocyte Percent A 1.3 % (0.0-0.0); Lymphocytes Absolute Auto 0.14 K/mm3 (1.10-4.50); Lymphocytes Percent Auto 2.3 % (18.0-42.0); Mean Corpuscular HGB Conc 33.7 g/dL (32.0-36.0); Mean Corpuscular Hemoglobin 38.7 pg (27.0-31.0); Mean Corpuscular Volume 114.9 fL (78.0-102.0); Modified Allen's Test Pass; Monocytes Percent Auto 11.7 % (2.0-11.0); Neutrophils Absolute Auto 5.1 K/mm3 (1.7-7.2); Neutrophils Percent Auto 84.3 % (50.0-70.0); Platelet Count Result 139 K/mm3 (150-420); Red Blood Count 2.48 M/mm3 (4.20-5.40); Red Cell Distribution Width 11.9 % (11.6-14.4); Site Drawn RIGHT RADIAL
[2023-05-25 16:33] LABS: RSV RNA, RT-PCR Negative (Negative)
[2023-05-25 16:54] LABS: Alanine Aminotransferase 83 U/L (14-59); Alkaline Phosphatase 353 U/L (46-116); Anion Gap 12 mmol/L (8-16); Aspartate Amino Transferase 49 U/L (15-37); Bilirubin,Total 0.4 mg/dL (0.00-1.00); Blood Urea Nitrogen 31 mg/dL (7-18); Calcium 8.8 mg/dL (8.5-10.1); Carbon Dioxide 23 mmol/L (21-32); Chloride 99 mmol/L (98-108); D Dimer 2.17 mg/L (0.19-0.50); Estimated CRCL calculation 17 ml/min; Estimated Glomerular Filt Rate 23; Glucose 117 mg/dL (70-99); NT Pro B Type Natriuretic Pept 4554 pg/mL (0-450); Osmolality Calculated 285 mOsm/kg (285-295); Potassium 4.1 mmol/L (3.5-5.1); Sodium 134 mmol/L (136-145); Total Protein 5.8 g/dL (6.4-8.2); Troponin I 14.4 ng/L (0.00-60.4)
[2023-05-25] MEDS: PIPERACILLN/TAZ 3.375GM/NS50ML 3.375 GM/50 ML BAG IVPB (17:30)
[2023-05-25] MEDS: SODIUM CHLORIDE 0.9% IV 500 ML 999 ML IV CONT (18:13)
--- NOTE | 2023-05-25 18:47 | ADMGEN ---
This patient, Isabel Elias, was admitted to 2nd Floor Room 210-2. Patient/family oriented to hospital policies and general routines including ID bracelet, bed and alarms, visiting hours, pain management, procedures, bathroom and other care routines, personal items, smoking policy, room service/diet, and visiting hours. Information on how to activate the Rapid Response Team has been discussed. Patient/Family are encouraged to report perceived risks to care and to ask questions if they do not understand what they are told or what they should do.
[2023-05-25] MEDS: carvediloL 6.25 MG TABLET PO (20:41)
[2023-05-25] MEDS: HYDROcodone/acetaminophen (*CRX) 5-325 MG TABLET 1 TAB PO (20:42)
[2023-05-26] VITALS (12 sets, daily range): BP systolic 106–124; BP diastolic 42–70; PULSE 78–100; RESP 14–18; TEMP 36.2–37.1; O2SAT 90–99
[2023-05-26] MEDS: PIPERACILLIN/TAZ 2.25G/NS 50ML 2.25 GM/50 ML BAG IVPB ×2 (01:28→10:20)
[2023-05-26] MEDS: LEVOTHYROXINE SODIUM 25 MCG TABLET PO (05:30)
[2023-05-26] MEDS: LEVOTHYROXINE SODIUM 100 MCG TABLET PO (05:30)
[2023-05-26 05:35] LABS: Basophils Absolute Auto 0.02 K/mm3 (0.00-0.10); Basophils Percent Auto 0.5 % (0.0-1.0); Eosinophils Absolute Auto 0.03 K/mm3 (0.02-0.50); Eosinophils Percent Auto 0.7 % (1.0-6.0); Hematocrit 27.3 % (35.0-42.0); Immature Granulocyte Absolute 0.04 K/mm3 (0.00-0.00); Lymphocytes Absolute Auto 0.09 K/mm3 (1.10-4.50); Lymphocytes Percent Auto 2.2 % (18.0-42.0); Mean Corpuscular Hemoglobin 38.5 pg (27.0-31.0); Mean Corpuscular Volume 116.7 fL (78.0-102.0); Mean Platelet Volume 11.6 fl (9.2-11.8); Monocytes Absolute Auto 0.46 K/mm3 (0.10-0.90); Monocytes Percent Auto 11.3 % (2.0-11.0); Neutrophils Absolute Auto 3.4 K/mm3 (1.7-7.2); Neutrophils Percent Auto 84.3 % (50.0-70.0); Platelet Count Result 120 K/mm3 (150-420); Red Blood Count 2.34 M/mm3 (4.20-5.40); Red Cell Distribution Width 12.2 % (11.6-14.4); White Blood Count 4.1 K/mm3 (4.8-10.8)
[2023-05-26 05:45] LABS: Alanine Aminotransferase 77 U/L (14-59); Albumin Level 2.6 g/dL (3.4-5.0); Alkaline Phosphatase 349 U/L (46-116); Anion Gap 8 mmol/L (8-16); Aspartate Amino Transferase 45 U/L (15-37); Bilirubin,Total 0.4 mg/dL (0.00-1.00); Blood Urea Nitrogen 31 mg/dL (7-18); Calcium 8.6 mg/dL (8.5-10.1); Carbon Dioxide 26 mmol/L (21-32); Chloride 103 mmol/L (98-108); Estimated CRCL calculation 19 ml/min; Estimated Glomerular Filt Rate 26; Glucose 105 mg/dL (70-99); Osmolality Calculated 290 mOsm/kg (285-295); Potassium 3.8 mmol/L (3.5-5.1); Sodium 137 mmol/L (136-145); Total Protein 5.3 g/dL (6.4-8.2)
--- NOTE | 2023-05-26 08:00 | ECHO_ITS ---
Patient Info Name: Isabel Elias Age: 83 years : 1940 Gender: Female Ht: 60 in Wt: 160 lbs BSA: 1.78 m2 HR: 85 bpm BP: 129 / 52 mmHg Heart Rhythm: Sinus Rhythm Technical Quality: Good Exam Date: 05/26/2023 11:26 AM Exam Location: [facility] Patient Status: Outpatient Admit Date: 05/25/2023 Staff Ordering Physician: Kaden Nolen APRN Neonatal Icu Coordinator: Jan Swann RDCS Attending Provider: Andrew Sauer MD Referring Physician: Callmu DYER; Exam Type: CA echo doppler color flow Study Info Indications - [facility] EXACERBATION Complete two-dimensional, color flow and Doppler transthoracic echocardiogram is performed. Summary 1. Complete two-dimensional, color flow and Doppler transthoracic echocardiogram is performed. 2. Left ventricular chamber dimension is normal. 3. Left ventricular systolic function is normal, estimated at 60-65%. 4. The left ventricular diastolic function is grade I diastolic dysfunction. 5. E/e' 11 is mildly elevated. 6. Left atrial chamber dimension is mildly enlarged. 7. There is mild aortic valve regurgitation. 8. The mitral valve has moderately calcified annulus. 9. There is mild to moderate mitral valve regurgitation. 10. There is mild tricuspid valve regurgitation. 11. No pulmonary hypertension, estimated pulmonary arterial systolic pressure is 28 mmHg. Left Ventricle E/e' 11 is mildly elevated. Left ventricular chamber dimension is normal. Left ventricular systolic function is normal, estimated at 60-65%. The left ventricular diastolic function is grade I diastolic dysfunction. Right Ventricle Right ventricular systolic function is normal and with normal TAPSE 2.9 cm. Right ventricular chamber dimension is normal. Left Atria Left atrial chamber dimension is mildly enlarged. Right Atria Right atrial chamber dimension is normal. Aortic Valve The aortic valve is trileaflet. There is no aortic valve stenosis. There is mild aortic valve regurgitation. Pulmonic Valve There is no pulmonic regurgitation. Mitral Valve The mitral valve has moderately calcified annulus. There is no mitral valve stenosis. There is mild to moderate mitral valve regurgitation. Tricuspid Valve There is mild tricuspid valve regurgitation. No pulmonary hypertension, estimated pulmonary arterial systolic pressure is 28 mmHg. Pericardium/Pleural There is no pericardial effusion. Inferior Vena Cava Normal inferior vena cava with >50% collapse upon inspiration consistent with normal right atrial pressure, 5 mmHg. Aorta The aortic root size at the sinus of Valsalva is normal. Left Ventricular Outflow Tract Name Value Normal LVOT 2D LVOT Diameter 1.8 cm LVOT Doppler LVOT Peak Velocity 148 cm/s LVOT Peak Gradient 5 mmHg LVOT Mean Gradient 2 mmHg LVOT VTI 35 cm LVOT VTI/AV VTI Ratio 1.0 LVOT Stroke Volume 91 ml Pulmonic Valve Name Value Normal
[2023-05-26] MEDS: DEXAMETHASONE 2 MG TABLET 6 MG PO (08:56)
[2023-05-26] MEDS: CHOLECALCIFEROL 1,000 UNITS TABLET 2000 UNITS PO (08:57)
[2023-05-26] MEDS: ATORVASTATIN 10 MG TABLET 20 MG PO (08:57)
[2023-05-26] MEDS: MECLIZINE HCL 12.5 MG TABLET PO ×3 (08:58→17:36)
[2023-05-26] MEDS: POTASSIUM CHLORIDE 10 MEQ ER TABLET PO ×2 (08:59→17:36)
[2023-05-26] MEDS: allopurinoL 300 MG TABLET PO (08:59)
[2023-05-26] MEDS: FUROSEMIDE 40 MG TABLET PO (08:59)
[2023-05-26] MEDS: carvediloL 6.25 MG TABLET PO ×2 (08:59→21:03)
[2023-05-26] MEDS: NIFEdipine 30 MG TAB.ER.24 90 MG PO (09:00)
--- NOTE | 2023-05-26 10:26 | PM.IMHP ---
H&P: HPI History of Present Illness Date/Time: 05/26/23 10:26 Chief Complaint: Dyspnea Narrative: This is an 83-year-old female patient with a past history of multiple myeloma, von Willebrand's disease, CKD, hypertension, hypothyroidism, CHF, GERD and depression who is admitted to the hospital due to findings of pneumonia and sustained positive COVID test. Patient is on immune suppressant therapy for multiple myeloma and came down with COVID about 5 weeks ago but just started having significant symptoms over the last 1 week culminating in the need to come to the hospital where she was found to be hypoxic and started on supplemental oxygen. Patient was also found to have worsening of chronic kidney disease. Patient was admitted to the hospital on telemetry monitoring. She was noted to have positive D-dimer but due to worsening renal function unable to undergo CTA. This morning she had V/Q scan and lower extremity Dopplers completed which were all negative. Patient reports minor nausea but denies abdominal pain, chest pain, bowel or bladder dysfunction. Patient reports fever and chills yesterday. She also reports decreased urine output over the last several days and progressive dyspnea which was the reason for seeking care in the first place. Review of Systems Review of Systems: All systems reviewed & are unremarkable except as noted in HPI and below PMFSH Past Medical History Medical History (Updated 05/26/23 @ 14:41 by Kaden Nolen APRN) Bowel obstruction 06/03/2018 CHF (congestive heart failure) Due to cancer Chronic anemia Chronic back pain Legs, feet, and hands GERD (gastroesophageal reflux disease) H/O CHF H/O multiple myeloma H/O von Willebrand's disease HTN (hypertension) Hx of myocardial infarction 2016 Hypothyroidism Meniere disease Positive depression screening Surgical History Surgical History Hx of hysterectomy 1982 Family History Family History Father Emphysema, unspecified Social History Social History Smoking status: Never smoker Tobacco type: cigarettes Second hand tobacco smoke exposure: No Smoking end date: 08/25/74 Alcohol intake: never Substance use: never Substance use type: does not use Lack of Transportation: No Lack of Food: Never True Current Housing: I Have Housing Concerned About Future Housing: No Difficulty Paying Gas/Electric Bills: No Difficulty Paying for Meds: No Currently Unemployed: No Education: Bachelor's Degree Difficulty w/ Childcare or Family Care: No Living arrangements: with family Occupation/Education: retired Spiritual care concerns: No Meds Home Medications and Allergies Home Medications Medication Instructions Recorded Confirmed Type atorvastatin 40 mg tablet 20 mg PO DAILY 02/14/20 05/25/23 History furosemide 40 mg tablet 40 mg PO QAM 02/14/20 05/25/23 History meclizine 12.5 mg tablet 12.5 mg PO TID 02/14/20 05/25/23 History potassium chloride 10 mEq 10 meq PO BID 02/14/20 05/25/23 History capsule,extended release carvedilol 6.25 mg tablet 6.25 mg PO Q12H 10/11/21 05/25/23 History cholecalciferol (vitamin D3) 50 50 mcg PO DAILY 10/11/21 05/25/23 History mcg (2,000 unit) tablet nifedipine 30 mg tablet,extended 30 mg PO DAILY 10/11/21 05/25/23 History release 24 hr nifedipine 60 mg tablet,extended 60 mg PO DAILY 10/11/21 05/25/23 History release allopurinol 300 mg tablet 300 mg PO DAILY 05/25/23 05/25/23 History hydrocodone 5 mg-acetaminophen 325 1 tablet PO Q8H PRN Pain, Moderate 05/25/23 05/25/23 History mg tablet levothyroxine 125 mcg tablet 125 mcg PO DAILY 05/25/23 05/25/23 History (Synthroid) Allergies Allergy/AdvReac Type Severity Reaction Status Date / Time codeine Allergy Intermediate Unknown Veri
[2023-05-26] MEDS: SODIUM CHLORIDE 0.9% IV 1,000 ML 100 ML IV CONT (14:07)
[2023-05-26] MEDS: AZITHROMYCIN 250 MG TABLET 500 MG PO (14:07)
[2023-05-26 14:08] LABS: Anion Gap 13 mmol/L (8-16); Blood Urea Nitrogen 28 mg/dL (7-18); Calcium 8.4 mg/dL (8.5-10.1); Carbon Dioxide 23 mmol/L (21-32); Chloride 101 mmol/L (98-108); Estimated CRCL calculation 18 ml/min; Estimated Glomerular Filt Rate 26; Ferritin 151 ng/mL (8-252); Glucose 188 mg/dL (70-99); Iron 10 ug/dL (50-170); Osmolality Calculated 294 mOsm/kg (285-295); Percent Iron Saturation 4 % (12-57); Potassium 4.2 mmol/L (3.5-5.1); Sodium 137 mmol/L (136-145); Vitamin B12 1177 pg/mL (193-986)
[2023-05-26 14:10] LABS: CRP 15.8 mg/dL (0.0-0.9); Folic Acid > 20.0 ng/mL (8.6->20)
[2023-05-26] MEDS: cefTRIAXone 2 GM/NS 100 ML 2 GM/100 ML BAG IVPB (17:36)
[2023-05-26] MEDS: FERROUS SULFATE 325 MG TABLET DR PO (17:36)
--- NOTE | 2023-05-26 19:45 | PC.NURSE ---
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
[2023-05-26] MEDS: HYDROcodone/acetaminophen (*CRX) 5-325 MG TABLET 1 TAB PO (21:03)
[2023-05-26] MEDS: ONDANSETRON INJ 4 MG/2 ML VIAL IV PUSH (22:09)
[2023-05-27] VITALS (12 sets, daily range): BP systolic 106–129; BP diastolic 41–55; PULSE 77–97; RESP 16–18; TEMP 36–36.6; O2SAT 88–95
--- NOTE | 2023-05-27 02:44 | PC.NURSE ---
Pt having visual hallucinations. Nurse went into room, turned light on, and Pt pointed to sprinkler hanging from ceiling. Pt asked if that was a mouse. Nurse reassured her it was the sprinkler and not a mouse. Pt insisted that it was moving. Again reassured her there was no mouse there. She also wondered if the curtain track had a mouse in it. There was no nurse in the room. Educated completion manager light. Left bathroom light on to help Pt see better.
[2023-05-27] MEDS: LEVOTHYROXINE SODIUM 100 MCG TABLET PO (05:31)
[2023-05-27] MEDS: LEVOTHYROXINE SODIUM 25 MCG TABLET PO (05:31)
[2023-05-27 05:33] LABS: Hematocrit 27.1 % (35.0-42.0); Hemoglobin 8.9 g/dL (11.7-13.8); Mean Corpuscular HGB Conc 32.8 g/dL (32.0-36.0); Mean Corpuscular Hemoglobin 38.4 pg (27.0-31.0); Mean Corpuscular Volume 116.8 fL (78.0-102.0); Mean Platelet Volume 11.1 fl (9.2-11.8); Platelet Count Result 130 K/mm3 (150-420); Red Blood Count 2.32 M/mm3 (4.20-5.40); Red Cell Distribution Width 12.2 % (11.6-14.4); White Blood Count 7.3 K/mm3 (4.8-10.8)
[2023-05-27] MEDS: SODIUM CHLORIDE 0.9% IV 1,000 ML 100 ML IV CONT (05:44)
[2023-05-27 06:06] LABS: Alanine Aminotransferase 127 U/L (14-59); Albumin Level 2.5 g/dL (3.4-5.0); Alkaline Phosphatase 461 U/L (46-116); Anion Gap 12 mmol/L (8-16); Aspartate Amino Transferase 88 U/L (15-37); Bilirubin,Total 0.3 mg/dL (0.00-1.00); Blood Urea Nitrogen 38 mg/dL (7-18); Calcium 8.6 mg/dL (8.5-10.1); Carbon Dioxide 23 mmol/L (21-32); Chloride 105 mmol/L (98-108); Estimated CRCL calculation 19 ml/min; Estimated Glomerular Filt Rate 26; Glucose 177 mg/dL (70-99); Osmolality Calculated 303 mOsm/kg (285-295); Potassium 4.4 mmol/L (3.5-5.1); Sodium 140 mmol/L (136-145); Total Protein 5.5 g/dL (6.4-8.2)
[2023-05-27 06:11] LABS: Band Neutrophils Percent 4 % (0-6); Basophils Percent Manual 0 % (0-1); Eosinophils Percent Manual 0 % (1-6); Lymphocytes Absolute Manual 0.07 K/mm3 (1.1-4.5); Lymphocytes Percent Manual 1 % (18-44); Metamyelocytes Percent 0 %; Monocytes Absolute Manual 0.43 K/mm3 (0.1-0.90); Monocytes Percent Manual 6 % (3-9); Myelocytes Percent 1 %; Neutrophils Absolute Manual 6.71 K/mm3 (1.7-7.2); Neutrophils Percent Manual 88 % (46-73); Platelet Estimate Adequate (Adequate); Total Cells Counted 100
[2023-05-27 07:01] LABS: Procalcitonin 0.2 ng/mL
[2023-05-27] MEDS: MECLIZINE HCL 12.5 MG TABLET PO ×3 (08:16→17:30)
[2023-05-27] MEDS: FUROSEMIDE 40 MG TABLET PO (08:16)
[2023-05-27] MEDS: CHOLECALCIFEROL 1,000 UNITS TABLET 2000 UNITS PO (08:19)
[2023-05-27] MEDS: DEXAMETHASONE 2 MG TABLET 6 MG PO (08:19)
[2023-05-27] MEDS: ATORVASTATIN 10 MG TABLET 20 MG PO (08:19)
[2023-05-27] MEDS: allopurinoL 300 MG TABLET PO (08:20)
[2023-05-27] MEDS: carvediloL 6.25 MG TABLET PO ×2 (08:20→20:18)
[2023-05-27] MEDS: NIFEdipine 30 MG TAB.ER.24 90 MG PO (08:20)
[2023-05-27] MEDS: AZITHROMYCIN 250 MG TABLET 500 MG PO (08:20)
[2023-05-27] MEDS: POTASSIUM CHLORIDE 10 MEQ ER TABLET PO ×2 (08:21→17:30)
[2023-05-27] MEDS: FERROUS SULFATE 325 MG TABLET DR PO ×3 (08:21→17:30)
--- NOTE | 2023-05-27 12:44 | PC.NURSE ---
O2 decreased to 1L, patient spo2 89%. O2 increased to 2L and spo2 92%.
--- NOTE | 2023-05-27 13:05 | PM.IMPN ---
Progress Note: A&P Assessment and Plan (1) Pneumonia: Qualifiers: Laterality: bilateral Lung location: lower lobe of lung Pneumonia type: due to unspecified organism Qualified Code(s): J18.9 - Pneumonia, unspecified organism Code(s): J18.9 - Pneumonia, unspecified organism Status: Acute Assessment and Plan: Bilateral lower lobe infiltrates worse on the left with left lower lobe bronchi and new oxygen demand. Patient currently on 2 liters/minute nasal cannula. Change antibiotics from Zosyn to Rocephin and azithromycin due to impaired renal function. Suspect bacterial pneumonia superimposed on recent COVID. (2) COVID: Code(s): U07.1 - COVID-19 Status: Acute Assessment and Plan: Patient has been COVID positive for 5 weeks the first 2 weeks were nearly asymptomatic, followed by 2 weeks of minor to moderate symptoms followed by 1 week of worsening dyspnea and fatigue which finally brought patient to hospital. Due to immune suppression medication Tecvayli for multiple myeloma as well as worsening renal function and duration of symptoms patient is not a candidate for antiviral therapy at this time. continue to titrate oxygenation and continue dexamethasone. (3) Hypoxia: Code(s): R09.02 - Hypoxemia Status: Acute Assessment and Plan: See 1 and 2 (4) Acute kidney injury superimposed on chronic kidney disease: Code(s): N17.9 - Acute kidney failure, unspecified; N18.9 - Chronic kidney disease, unspecified Status: Acute Assessment and Plan: Baseline GFR appears to be around 45 currently 26 with increased BUN and creatinine. Suspect dehydration related ARTIE on CKD due to pneumonia. Will give IV fluids and monitor. 05/27: No significant change in renal function while on IV fluids. Fluids discontinued and will recommend outpatient Nephrology follow up. (5) H/O von Willebrand's disease: Code(s): Z86.2 - Personal history of diseases of the blood and blood-forming organs and certain disorders involving the immune mechanism Status: Acute Assessment and Plan: Negative DVT and negative V/Q scan. Von Willebrand's is often protective against DVT. Will withhold anticoagulation for VTE prophylaxis for this reason. (6) D-dimer, elevated: Code(s): R79.89 - Other specified abnormal findings of blood chemistry Status: Acute Assessment and Plan: Lower extremity venous Dopplers negative for DVT and V/Q scan low probability for PE. Patient cannot undergo CTA at this time due to compromised renal function. Von Willebrand's disease is often protective against thromboembolism so CTA is not needed at this time. (7) H/O CHF: Code(s): Z86.79 - Personal history of other diseases of the circulatory system Status: Acute Assessment and Plan: BNP elevated at 4500 but no signs of pulmonary edema on chest x-ray and no rales or crackles. No lower extremity edema and no JVD. Surface echocardiogram shows sustained LV function with grade 1 diastolic dysfunction which is stable per pt norm. (8) H/O multiple myeloma: Code(s): Z85.79 - Personal history of other malignant neoplasms of lymphoid, hematopoietic and related tissues Status: Acute Assessment and Plan: Receiving Tecvayli (chemotherapy, bispecific antibody) (9) HTN (hypertension): Code(s): I10 - Essential (primary) hypertension Status: Chronic Assessment and Plan: Stable, Blood Pressure reviewed on 05/27. Diastolic pressure mildly low. (10) Hyponatremia: Code(s): E87.1 - Hypo-osmolality and hyponatremia Status: Acute Assessment and Plan: Minor at 134 on admit, improved to 137 with AM labs on 05/26, back to baseline at 140 on AM labs 05/27 (11) Chronic anemia: Code(s): D64.9 - Anemia, unspecified Status: Acute Assessment and Plan: Multifactorial, history of Multiple Myeloma, CKD and anemia of ch
[2023-05-27] MEDS: cefTRIAXone 2 GM/NS 100 ML 2 GM/100 ML BAG IVPB (17:31)
[2023-05-27] MEDS: HYDROcodone/acetaminophen (*CRX) 5-325 MG TABLET 1 TAB PO (22:01)
--- NOTE | 2023-05-27 22:06 | PC.NURSE ---
Pt is adamant that she is in [place], [place]. This RN has attempted multiple times to reorient pt to location, and pt will not verbalize understanding that she is in [place], [place]. This RN communicated to the pt that they will remind (reorient) pt to her location if she is to forget. Pt did verbalize understanding for that intervention.
[2023-05-28] VITALS (9 sets, daily range): BP systolic 115–143; BP diastolic 55–58; PULSE 78–98; RESP 14–20; TEMP 36.4–36.8; O2SAT 78–95
--- NOTE | 2023-05-28 00:15 | PC.NURSE ---
M[employer]OR [employer] FIELD REPRESENTATIVE contacted regarding pt's agitation and restlessness. New order received and noted.
[2023-05-28] MEDS: QUEtiapine FUMARATE 25 MG TABLET 50 MG PO (00:23)
[2023-05-28 05:21] LABS: Hematocrit 25.4 % (35.0-42.0); Hemoglobin 8.4 g/dL (11.7-13.8); Mean Corpuscular HGB Conc 33.1 g/dL (32.0-36.0); Mean Corpuscular Hemoglobin 38.4 pg (27.0-31.0); Mean Platelet Volume 11.4 fl (9.2-11.8); Platelet Count Result 133 K/mm3 (150-420); Red Blood Count 2.19 M/mm3 (4.20-5.40); Red Cell Distribution Width 12.5 % (11.6-14.4); White Blood Count 6.7 K/mm3 (4.8-10.8)
[2023-05-28 05:26] LABS: Appearance Urine Clear (Clear); Bilirubin Urine Negative (Negative); Blood Urine Negative (Negative); Color Urine Light Yellow (Yellow); Glucose Urine UA Negative (Negative); Ketones Urine Negative (Negative); Leukocyte Esterase Ur Negative LEU/UL (Negative); Nitrate Urine Negative (Negative); Protein Urine Negative (Negative); Specific Grav Ur 1.015 (1.010-1.020); Urobilinogen Urine 0.2 mg/dL (0.2-1.0)
[2023-05-28 05:27] LABS: Add Urine Microscopic? NO
[2023-05-28 05:34] LABS: Alanine Aminotransferase 149 U/L (14-59); Albumin Level 2.4 g/dL (3.4-5.0); Alkaline Phosphatase 418 U/L (46-116); Anion Gap 11 mmol/L (8-16); Aspartate Amino Transferase 85 U/L (15-37); Bilirubin,Total 0.2 mg/dL (0.00-1.00); Blood Urea Nitrogen 41 mg/dL (7-18); Calcium 8.4 mg/dL (8.5-10.1); Carbon Dioxide 22 mmol/L (21-32); Chloride 107 mmol/L (98-108); Estimated CRCL calculation 27 ml/min; Estimated Glomerular Filt Rate 41; Glucose 138 mg/dL (70-99); Osmolality Calculated 302 mOsm/kg (285-295); Potassium 4.4 mmol/L (3.5-5.1); Sodium 140 mmol/L (136-145); Total Protein 5.2 g/dL (6.4-8.2)
[2023-05-28 05:41] LABS: Neutrophils Percent Manual 92 % (46-73); Total Cells Counted 100
[2023-05-28 05:42] LABS: Band Neutrophils Percent 1 % (0-6); Basophils Percent Manual 0 % (0-1); Eosinophils Percent Manual 0 % (1-6); Lymphocytes Absolute Manual 0.06 K/mm3 (1.1-4.5); Lymphocytes Percent Manual 1 % (18-44); Metamyelocytes Percent 3 %; Monocytes Absolute Manual 0.13 K/mm3 (0.1-0.90); Monocytes Percent Manual 2 % (3-9); Myelocytes Percent 1 %; Neutrophils Absolute Manual 6.23 K/mm3 (1.7-7.2); Platelet Estimate Adequate (Adequate)
[2023-05-28] MEDS: LEVOTHYROXINE SODIUM 100 MCG TABLET PO (06:28)
[2023-05-28] MEDS: LEVOTHYROXINE SODIUM 25 MCG TABLET PO (06:28)
[2023-05-28] MEDS: NIFEdipine 30 MG TAB.ER.24 60 MG PO (08:52)
[2023-05-28] MEDS: MECLIZINE HCL 12.5 MG TABLET PO ×3 (08:52→17:01)
[2023-05-28] MEDS: DEXAMETHASONE 2 MG TABLET 6 MG PO (08:52)
[2023-05-28] MEDS: AZITHROMYCIN 250 MG TABLET 500 MG PO (08:53)
[2023-05-28] MEDS: CHOLECALCIFEROL 1,000 UNITS TABLET 2000 UNITS PO (08:53)
[2023-05-28] MEDS: carvediloL 6.25 MG TABLET PO ×2 (08:53→20:46)
[2023-05-28] MEDS: FERROUS SULFATE 325 MG TABLET DR PO ×3 (08:54→17:02)
[2023-05-28] MEDS: POTASSIUM CHLORIDE 10 MEQ ER TABLET PO ×2 (08:54→17:02)
[2023-05-28] MEDS: allopurinoL 300 MG TABLET PO (08:54)
[2023-05-28] MEDS: ATORVASTATIN 10 MG TABLET 20 MG PO (08:54)
[2023-05-28] MEDS: FUROSEMIDE 40 MG TABLET PO (08:55)
--- NOTE | 2023-05-28 09:00 | PC.NURSE ---
Called to front end developer due to wanting information on , patient hx of covid and pneumonia, with hx of covid, spoke with , concerned that seems more confused and was not answering her phone, advised that I would check to see if any medications were given that could have lead to confusion and that system policy for covid positive patients were not to have visitors, states understands but is very concerned, advised that the hospitalist will be here between 12-1 to see her and we would call him when she arrived, he was OK with that, still frustrated but willing to go back home to wait for call.
--- NOTE | 2023-05-28 09:17 | PC.NURSE ---
Joanna Busch contacted (IC at [facility]) to review record and need for isolation, reported that patient tested positive April 25 2023 for covid, PCR shows still positive, CXR showing pneumonia, S/S have continued since April, will review and call us back.
--- NOTE | 2023-05-28 09:31 | PC.NURSE ---
Received information from IC at [facility]an [facility], may come off of isolation, treatment is for pneumonia at this time, may visit if 10 days out from s/s of his covid diagnosis as well, hospitalist notified, patient spouse notified as well
--- NOTE | 2023-05-28 14:20 | PM.IMPN ---
Progress Note: A&P Assessment and Plan (1) Pneumonia: Qualifiers: Laterality: bilateral Lung location: lower lobe of lung Pneumonia type: due to unspecified organism Qualified Code(s): J18.9 - Pneumonia, unspecified organism Code(s): J18.9 - Pneumonia, unspecified organism Status: Acute Assessment and Plan: Bilateral lower lobe infiltrates worse on the left with left lower lobe bronchi and new oxygen demand. Patient currently on room air sating 90-92%. Change antibiotics from Zosyn to Rocephin and azithromycin due to impaired renal function. De-escalate to azithromycin and Augmentin for d/c. Suspect bacterial pneumonia superimposed on recent COVID. (2) COVID: Code(s): U07.1 - COVID-19 Status: Acute Assessment and Plan: Patient has been COVID positive for 5 weeks the first 2 weeks were nearly asymptomatic, followed by 2 weeks of minor to moderate symptoms followed by 1 week of worsening dyspnea and fatigue which finally brought patient to hospital. Due to immune suppression medication Tecvayli for multiple myeloma as well as worsening renal function and duration of symptoms patient is not a candidate for antiviral therapy at this time. continue to titrate oxygenation and continue dexamethasone. (3) Acute kidney injury superimposed on chronic kidney disease: Code(s): N17.9 - Acute kidney failure, unspecified; N18.9 - Chronic kidney disease, unspecified Status: Acute Assessment and Plan: Baseline GFR appears to be around 45 currently 26 with increased BUN and creatinine. Suspect dehydration related ARTIE on CKD due to pneumonia. Will give IV fluids and monitor. 05/27: No significant change in renal function while on IV fluids. Fluids discontinued and will recommend outpatient Nephrology follow up. Cr today 05/28 is 1.25, BUN 41, CrCl 27, GFR 41 (4) H/O von Willebrand's disease: Code(s): Z86.2 - Personal history of diseases of the blood and blood-forming organs and certain disorders involving the immune mechanism Status: Acute Assessment and Plan: Negative DVT and negative V/Q scan. Von Willebrand's is often protective against DVT. Will withhold anticoagulation for VTE prophylaxis for this reason. (5) D-dimer, elevated: Code(s): R79.89 - Other specified abnormal findings of blood chemistry Status: Acute Assessment and Plan: Lower extremity venous Dopplers negative for DVT and V/Q scan low probability for PE. Patient cannot undergo CTA at this time due to compromised renal function. Von Willebrand's disease is often protective against thromboembolism so CTA is not needed at this time. (6) H/O CHF: Code(s): Z86.79 - Personal history of other diseases of the circulatory system Status: Acute Assessment and Plan: BNP elevated at 4500 but no signs of pulmonary edema on chest x-ray and no rales or crackles. No lower extremity edema and no JVD. Surface echocardiogram shows sustained LV function with grade 1 diastolic dysfunction which is stable per pt norm. (7) H/O multiple myeloma: Code(s): Z85.79 - Personal history of other malignant neoplasms of lymphoid, hematopoietic and related tissues Status: Acute Assessment and Plan: Receiving Tecvayli (chemotherapy, bispecific antibody) (8) HTN (hypertension): Code(s): I10 - Essential (primary) hypertension Status: Chronic Assessment and Plan: Stable, Blood Pressure reviewed on 05/27. Diastolic pressure mildly low. (9) Hyponatremia: Code(s): E87.1 - Hypo-osmolality and hyponatremia Status: Acute Assessment and Plan: Minor at 134 on admit, improved to 137 with AM labs on 05/26, back to baseline at 140 on AM labs 05/27 (10) Chronic anemia: Code(s): D64.9 - Anemia, unspecified Status: Acute Assessment and Plan: Multifactorial, history of Multiple Myeloma, CKD and anemia of chronic illness.
--- NOTE | 2023-05-28 14:57 | P.DS_ITS ---
DS: Admitting Diagnosis Discharge Date 05/28/23 Admitting Diagnosis SOB, COVID, pneumonia DS: Discharge Diagnosis Discharge Diagnosis (1) Pneumonia: Qualifiers: Laterality: bilateral Lung location: lower lobe of lung Pneumonia type: due to unspecified organism Qualified Code(s): J18.9 - Pneumonia, unspecified organism Code(s): J18.9 - Pneumonia, unspecified organism Status: Acute Assessment and Plan: Bilateral lower lobe infiltrates worse on the left with left lower lobe bronchi and new oxygen demand. Patient currently on room air sating 90-92%. Change antibiotics from Zosyn to Rocephin and azithromycin due to impaired renal function. De-escalate to azithromycin and Augmentin for d/c. Suspect bacterial pneumonia superimposed on recent COVID. (2) COVID: Code(s): U07.1 - COVID-19 Status: Acute Assessment and Plan: Patient has been COVID positive for 5 weeks the first 2 weeks were nearly asymptomatic, followed by 2 weeks of minor to moderate symptoms followed by 1 week of worsening dyspnea and fatigue which finally brought patient to hospital. Due to immune suppression medication Tecvayli for multiple myeloma as well as worsening renal function and duration of symptoms patient is not a candidate for antiviral therapy at this time. continue to titrate oxygenation and continue dexamethasone. (3) Acute kidney injury superimposed on chronic kidney disease: Code(s): N17.9 - Acute kidney failure, unspecified; N18.9 - Chronic kidney disease, unspecified Status: Acute Assessment and Plan: Baseline GFR appears to be around 45 currently 26 with increased BUN and creatinine. Suspect dehydration related ARTIE on CKD due to pneumonia. Will give IV fluids and monitor. 05/27: No significant change in renal function while on IV fluids. Fluids discontinued and will recommend outpatient Nephrology follow up. Cr today 05/28 is 1.25, BUN 41, CrCl 27, GFR 41 (4) H/O von Willebrand's disease: Code(s): Z86.2 - Personal history of diseases of the blood and blood-forming organs and certain disorders involving the immune mechanism Status: Acute Assessment and Plan: Negative DVT and negative V/Q scan. Von Willebrand's is often protective against DVT. Will withhold anticoagulation for VTE prophylaxis for this reason. (5) D-dimer, elevated: Code(s): R79.89 - Other specified abnormal findings of blood chemistry Status: Acute Assessment and Plan: Lower extremity venous Dopplers negative for DVT and V/Q scan low probability for PE. Patient cannot undergo CTA at this time due to compromised renal function. Von Willebrand's disease is often protective against thromboembolism so CTA is not needed at this time. (6) H/O CHF: Code(s): Z86.79 - Personal history of other diseases of the circulatory system Status: Acute Assessment and Plan: BNP elevated at 4500 but no signs of pulmonary edema on chest x-ray and no rales or crackles. No lower extremity edema and no JVD. Surface echocardiogram shows sustained LV function with grade 1 diastolic dysfunction which is stable per pt norm. (7) H/O multiple myeloma: Code(s): Z85.79 - Personal history of other malignant neoplasms of lymphoid, hematopoietic and related tissues Status: Acute Assessment and Plan: Receiving Tecvayli (chemotherapy, bispecific antibody) (8) HTN (hypertension): Code(s): I10 - Essential (primary) hypertension Status: Chronic Assessment and Plan: Stable, Blood Pressure reviewed on 05/27. Diastolic pressure
--- NOTE | 2023-05-28 15:40 | PC.NURSE ---
pt did walk with vivien habilitation specialist, 02 dropped to 78 on RA, vivien informed pt that she will be staying the night and we will get home o2 for her tomorrow, pt agrees with plan but is disappointed and expresses that she really wanted to go home today, fresh water given, call light in reach
[2023-05-28] MEDS: AMOXICILLIN/CLAVULANATE K 500-125 MG TAB 1 TABLET PO (17:01)
[2023-05-28] MEDS: DEXAMETHASONE 2 MG TABLET PO (17:02)
[2023-05-28] MEDS: QUEtiapine FUMARATE 25 MG TABLET PO (20:47)
--- NOTE | 2023-05-28 22:20 | PC.NURSE ---
This nurse spoke with patient's . Update on potential discharge. Nurse asked aboujt having Covid and stated they are always together and he had it when patient did in April. He is unsure if he has it now, he just has a cough.
[2023-05-29] VITALS (12 sets, daily range): BP systolic 139–152; BP diastolic 59–61; PULSE 88–102; RESP 16–18; TEMP 36.6; O2SAT 89–98
--- NOTE | 2023-05-29 02:10 | PC.NURSE ---
Pt noted up out of bed and walking in hallway carrying her O2 tubing in hand. Pt escorted back to her room, pt stated she was trying to find the BR and isn't sure where she is. Pt reoriented to environment, Pt very SOB, assisted to BSC and placed back on NC O2, Spo2 at 81%. Pt then assisted back to bed and bed alarm placed on. Pt reoriented to use of call hardy if needed to use BR. Pt verbalized understanding of use. She is currently only alert to self. Pt being monitored closely c use of video.
[2023-05-29 05:20] LABS: Hematocrit 27.1 % (35.0-42.0); Hemoglobin 8.9 g/dL (11.7-13.8); Mean Corpuscular HGB Conc 32.8 g/dL (32.0-36.0); Mean Corpuscular Volume 115.8 fL (78.0-102.0); Mean Platelet Volume 11.3 fl (9.2-11.8); Platelet Count Result 151 K/mm3 (150-420); Red Blood Count 2.34 M/mm3 (4.20-5.40); Red Cell Distribution Width 12.7 % (11.6-14.4); White Blood Count 7.8 K/mm3 (4.8-10.8)
[2023-05-29 05:36] LABS: Alanine Aminotransferase 113 U/L (14-59); Albumin Level 2.3 g/dL (3.4-5.0); Alkaline Phosphatase 366 U/L (46-116); Anion Gap 9 mmol/L (8-16); Aspartate Amino Transferase 43 U/L (15-37); Bilirubin,Total 0.3 mg/dL (0.00-1.00); Blood Urea Nitrogen 26 mg/dL (7-18); Calcium 8.9 mg/dL (8.5-10.1); Carbon Dioxide 25 mmol/L (21-32); Chloride 107 mmol/L (98-108); Estimated CRCL calculation 34 ml/min; Estimated Glomerular Filt Rate 54; Glucose 153 mg/dL (70-99); Osmolality Calculated 299 mOsm/kg (285-295); Potassium 4.2 mmol/L (3.5-5.1); Sodium 141 mmol/L (136-145); Total Protein 5.7 g/dL (6.4-8.2)
[2023-05-29 05:45] LABS: Band Neutrophils Percent 0 % (0-6); Basophils Percent Manual 0 % (0-1); Eosinophils Percent Manual 0 % (1-6); Lymphocytes Absolute Manual 0.15 K/mm3 (1.1-4.5); Lymphocytes Percent Manual 2 % (18-44); Metamyelocytes Percent 1 %; Monocytes Absolute Manual 0.23 K/mm3 (0.1-0.90); Monocytes Percent Manual 3 % (3-9); Myelocytes Percent 2 %; Neutrophils Absolute Manual 7.17 K/mm3 (1.7-7.2); Neutrophils Percent Manual 92 % (46-73); Platelet Estimate Adequate (Adequate); Total Cells Counted 100
[2023-05-29] MEDS: AMOXICILLIN/CLAVULANATE K 500-125 MG TAB 1 TABLET PO ×2 (06:05→20:28)
[2023-05-29] MEDS: LEVOTHYROXINE SODIUM 25 MCG TABLET PO (06:12)
[2023-05-29] MEDS: LEVOTHYROXINE SODIUM 100 MCG TABLET PO (06:12)
--- NOTE | 2023-05-29 07:47 | PM.IMPN ---
Progress Note: A&P Assessment and Plan (1) Pneumonia: Qualifiers: Laterality: bilateral Lung location: lower lobe of lung Pneumonia type: due to unspecified organism Qualified Code(s): J18.9 - Pneumonia, unspecified organism Code(s): J18.9 - Pneumonia, unspecified organism Status: Acute Assessment and Plan: Bilateral lower lobe infiltrates worse on the left with left lower lobe bronchi and new oxygen demand. Patient currently on 2 liters/minute nasal cannula. Change antibiotics from Zosyn to Rocephin and azithromycin due to impaired renal function. Suspect bacterial pneumonia superimposed on recent COVID. Patient up walking and she stayed low we will start on breathing treatments Incentive spirometry (2) COVID: Code(s): U07.1 - COVID-19 Status: Acute Assessment and Plan: Patient has been COVID positive for 5 weeks the first 2 weeks were nearly asymptomatic, followed by 2 weeks of minor to moderate symptoms followed by 1 week of worsening dyspnea and fatigue which finally brought patient to hospital. Due to immune suppression medication Tecvayli for multiple myeloma as well as worsening renal function and duration of symptoms patient is not a candidate for antiviral therapy at this time. continue to titrate oxygenation and continue dexamethasone. resolved Residual symptoms off of isolation (3) Hypoxia: Code(s): R09.02 - Hypoxemia Status: Acute Assessment and Plan: See 1 and 2 Oxygen will need home oxygen (4) Acute kidney injury superimposed on chronic kidney disease: Code(s): N17.9 - Acute kidney failure, unspecified; N18.9 - Chronic kidney disease, unspecified Status: Acute Assessment and Plan: Baseline GFR appears to be around 45 currently 26 with increased BUN and creatinine. Suspect dehydration related ARTIE on CKD due to pneumonia. Will give IV fluids and monitor. 05/27: No significant change in renal function while on IV fluids. Fluids discontinued and will recommend outpatient Nephrology follow up. (5) H/O von Willebrand's disease: Code(s): Z86.2 - Personal history of diseases of the blood and blood-forming organs and certain disorders involving the immune mechanism Status: Acute Assessment and Plan: Negative DVT and negative V/Q scan. Von Willebrand's is often protective against DVT. Will withhold anticoagulation for VTE prophylaxis for this reason. (6) D-dimer, elevated: Code(s): R79.89 - Other specified abnormal findings of blood chemistry Status: Acute Assessment and Plan: Lower extremity venous Dopplers negative for DVT and V/Q scan low probability for PE. Patient cannot undergo CTA at this time due to compromised renal function. Von Willebrand's disease is often protective against thromboembolism so CTA is not needed at this time. (7) H/O CHF: Code(s): Z86.79 - Personal history of other diseases of the circulatory system Status: Acute Assessment and Plan: BNP elevated at 4500 but no signs of pulmonary edema on chest x-ray and no rales or crackles. No lower extremity edema and no JVD. Surface echocardiogram shows sustained LV function with grade 1 diastolic dysfunction which is stable per pt norm. (8) H/O multiple myeloma: Code(s): Z85.79 - Personal history of other malignant neoplasms of lymphoid, hematopoietic and related tissues Status: Acute Assessment and Plan: Receiving Tecvayli (chemotherapy, bispecific antibody) (9) HTN (hypertension): Code(s): I10 - Essential (primary) hypertension Status: Chronic Assessment and Plan: Stable, Blood Pressure reviewed on 05/27. Diastolic pressure mildly low. (10) Hyponatremia: Code(s): E87.1 - Hypo-osmolality and hyponatremia Status: Acute Assessment and Plan: Minor at 134 on admit, improved to 137 with AM labs on 05/26, back to baseline at 140 on AM labs 05/27 (11
[2023-05-29] MEDS: AZITHROMYCIN 500 MG/NS 250 ML 500 MG/250 ML BAG 250 MG IVPB (09:02)
[2023-05-29] MEDS: FERROUS SULFATE 325 MG TABLET DR PO ×3 (09:02→17:13)
[2023-05-29] MEDS: CHOLECALCIFEROL 1,000 UNITS TABLET 2000 UNITS PO (09:03)
[2023-05-29] MEDS: NIFEdipine 30 MG TAB.ER.24 60 MG PO (09:03)
[2023-05-29] MEDS: ATORVASTATIN 10 MG TABLET 20 MG PO (09:04)
[2023-05-29] MEDS: POTASSIUM CHLORIDE 10 MEQ ER TABLET PO ×2 (09:04→17:13)
[2023-05-29] MEDS: FUROSEMIDE 40 MG TABLET PO (09:05)
[2023-05-29] MEDS: MECLIZINE HCL 12.5 MG TABLET PO ×3 (09:05→17:13)
[2023-05-29] MEDS: allopurinoL 300 MG TABLET PO (09:06)
[2023-05-29] MEDS: carvediloL 6.25 MG TABLET PO ×2 (09:06→20:28)
[2023-05-29] MEDS: DEXAMETHASONE 2 MG TABLET PO ×2 (09:07→17:13)
[2023-05-29] MEDS: IPRATROPIUM 0.5 MG/ALBUTEROL SULFATE 2.5 MG AMPUL.NEB 3 ML INHALATION ×3 (12:43→22:57)
[2023-05-29 15:32] LABS: Pneumococcal Antigen Urine Not Detected (Not Detected)
--- NOTE | 2023-05-29 18:13 | PC.NURSE ---
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 Patient reported visual hallucinations of faces, bugs and mice, and stated that she didn't know her own name when she woke this am. Per charge nurse, patient had a similar experience after patient took her first dose of seroquel, but patient had h. Exhaust And Muffler Fitter will pass on in report.
--- NOTE | 2023-05-29 18:19 | PC.NURSE ---
RT increased patient to 3 L O2 via n/c due to patient SPO2 of 87 on 2L.
[2023-05-29 19:14] LABS: Base Excess ABG 0.5 mmol/L (0-2); HCO3 ABG 22.7 mmol/L (23-29); Oxygen Saturation ABG 83.1 % (95-97); Oxyhemoglobin 82.8 % (94-100); PCO2 ABG 28.7 mmHg (35-45); PO2 ABG 45.7 mmHg (75-85); Total Hemoglobin 11.2 g/dL (12.0-18.0); pH ABG 7.52 (7.35-7.45)
[2023-05-29 19:15] LABS: Device NASAL CANNULA; Modified Allen's Test Pass; Site Drawn LEFT RADIAL
[2023-05-29] MEDS: HYDROcodone/acetaminophen (*CRX) 5-325 MG TABLET 1 TAB PO (20:30)
[2023-05-30] VITALS (14 sets, daily range): BP systolic 134–151; BP diastolic 57–87; PULSE 88–104; RESP 16–20; TEMP 36.6–36.8; O2SAT 86–98
[2023-05-30 05:26] LABS: Hematocrit 27.2 % (35.0-42.0); Hemoglobin 9.1 g/dL (11.7-13.8); Mean Corpuscular HGB Conc 33.5 g/dL (32.0-36.0); Mean Corpuscular Hemoglobin 38.2 pg (27.0-31.0); Mean Corpuscular Volume 114.3 fL (78.0-102.0); Platelet Count Result 159 K/mm3 (150-420); Red Blood Count 2.38 M/mm3 (4.20-5.40); Red Cell Distribution Width 12.6 % (11.6-14.4); White Blood Count 9.9 K/mm3 (4.8-10.8)
[2023-05-30] MEDS: LEVOTHYROXINE SODIUM 25 MCG TABLET PO (05:30)
[2023-05-30] MEDS: LEVOTHYROXINE SODIUM 100 MCG TABLET PO (05:30)
[2023-05-30 05:41] LABS: Alanine Aminotransferase 82 U/L (14-59); Albumin Level 2.2 g/dL (3.4-5.0); Alkaline Phosphatase 304 U/L (46-116); Anion Gap 7 mmol/L (8-16); Aspartate Amino Transferase 30 U/L (15-37); Bilirubin,Total 0.3 mg/dL (0.00-1.00); Blood Urea Nitrogen 19 mg/dL (7-18); Calcium 8.7 mg/dL (8.5-10.1); Carbon Dioxide 27 mmol/L (21-32); Chloride 106 mmol/L (98-108); Estimated CRCL calculation 36 ml/min; Estimated Glomerular Filt Rate 57; Glucose 137 mg/dL (70-99); Osmolality Calculated 294 mOsm/kg (285-295); Potassium 3.9 mmol/L (3.5-5.1); Sodium 140 mmol/L (136-145); Total Protein 5.3 g/dL (6.4-8.2)
[2023-05-30] MEDS: IPRATROPIUM 0.5 MG/ALBUTEROL SULFATE 2.5 MG AMPUL.NEB 3 ML INHALATION ×3 (05:41→17:30)
[2023-05-30 05:46] LABS: Band Neutrophils Percent 1 % (0-6); Basophils Percent Manual 0 % (0-1); Eosinophils Percent Manual 0 % (1-6); Lymphocytes Percent Manual 0 % (18-44); Metamyelocytes Percent 2 %; Monocytes Absolute Manual 0.29 K/mm3 (0.1-0.90); Monocytes Percent Manual 3 % (3-9); Neutrophils Percent Manual 94 % (46-73); Platelet Estimate Adequate (Adequate)
--- NOTE | 2023-05-30 07:21 | PM.IMPN ---
Progress Note: A&P Assessment and Plan (1) Pneumonia: Qualifiers: Laterality: bilateral Lung location: lower lobe of lung Pneumonia type: due to unspecified organism Qualified Code(s): J18.9 - Pneumonia, unspecified organism Code(s): J18.9 - Pneumonia, unspecified organism Status: Acute Assessment and Plan: Bilateral lower lobe infiltrates worse on the left with left lower lobe bronchi and new oxygen demand. Patient currently on 2 liters/minute nasal cannula. Change antibiotics from Zosyn to Rocephin and azithromycin due to impaired renal function. Suspect bacterial pneumonia superimposed on recent COVID. Patient up walking and she stayed low we will start on breathing treatments Incentive spirometry 05/30-increased oxygen requirements overnight. Diffuse crackles with expiratory wheeze. Now on 6 L NC and barely satting 91%. Chest XR with worsening hazy and interstitial pulmonary disease, suggestive of worsening pulmonary edema, possible infection. Ordered opti-flow, hi-flow oxygen and continuous pulse ox Lasix 40 mg IVP once now Broaden antibiotics for HAP BNP elevated 2955, WBC 9.9 but she is immunosuppressed. Oncologist is recommending IVIG to help recover from infection. Needs transfer to [facility] (2) COVID: Code(s): U07.1 - COVID-19 Status: Acute Assessment and Plan: Patient has been COVID positive for 5 weeks the first 2 weeks were nearly asymptomatic, followed by 2 weeks of minor to moderate symptoms followed by 1 week of worsening dyspnea and fatigue which finally brought patient to hospital. Due to immune suppression medication Tecvayli for multiple myeloma as well as worsening renal function and duration of symptoms patient is not a candidate for antiviral therapy at this time. continue to titrate oxygenation and continue dexamethasone. (3) Hypoxia: Code(s): R09.02 - Hypoxemia Status: Acute Assessment and Plan: see 1 (4) Acute kidney injury superimposed on chronic kidney disease: Code(s): N17.9 - Acute kidney failure, unspecified; N18.9 - Chronic kidney disease, unspecified Status: Acute Assessment and Plan: Baseline GFR appears to be around 45 currently 26 with increased BUN and creatinine. Suspect dehydration related ARTIE on CKD due to pneumonia. Will give IV fluids and monitor. 05/27: No significant change in renal function while on IV fluids. Fluids discontinued and will recommend outpatient Nephrology follow up. 05/30- 0.94, BUN 19 (5) H/O von Willebrand's disease: Code(s): Z86.2 - Personal history of diseases of the blood and blood-forming organs and certain disorders involving the immune mechanism Status: Acute Assessment and Plan: Negative DVT and negative V/Q scan. Von Willebrand's is often protective against DVT. Will withhold anticoagulation for VTE prophylaxis for this reason. (6) D-dimer, elevated: Code(s): R79.89 - Other specified abnormal findings of blood chemistry Status: Acute Assessment and Plan: Lower extremity venous Dopplers negative for DVT and V/Q scan low probability for PE. Patient cannot undergo CTA at this time due to compromised renal function. Von Willebrand's disease is often protective against thromboembolism so CTA is not needed at this time. (7) H/O CHF: Code(s): Z86.79 - Personal history of other diseases of the circulatory system Status: Acute Assessment and Plan: BNP elevated at 4500 but no signs of pulmonary edema on chest x-ray and no rales or crackles. No lower extremity edema and no JVD. Surface echocardiogram shows sustained LV function with grade 1 diastolic dysfunction which is stable per pt norm. 10/6 BNP 2500 with crackles and pulmonary edema on chest XR. increased o2 requirements IV lasix BID Replete electrolytes as needed daily weights (8) H/O multiple myeloma: Code(s): Z85.79 - Personal history of ot
[2023-05-30 08:41] LABS: NT Pro B Type Natriuretic Pept 2955 pg/mL (0-450)
[2023-05-30] MEDS: AZITHROMYCIN 500 MG/NS 250 ML 500 MG/250 ML BAG 250 MG IVPB (08:59)
[2023-05-30] MEDS: CHOLECALCIFEROL 1,000 UNITS TABLET 2000 UNITS PO (09:00)
[2023-05-30] MEDS: POTASSIUM CHLORIDE 10 MEQ ER TABLET PO ×2 (09:00→16:59)
[2023-05-30] MEDS: ATORVASTATIN 10 MG TABLET 20 MG PO (09:00)
[2023-05-30] MEDS: DEXAMETHASONE 2 MG TABLET PO ×2 (09:01→16:59)
[2023-05-30] MEDS: MECLIZINE HCL 12.5 MG TABLET PO ×3 (09:01→17:00)
[2023-05-30] MEDS: carvediloL 6.25 MG TABLET PO ×2 (09:01→20:49)
[2023-05-30] MEDS: NIFEdipine 30 MG TAB.ER.24 60 MG PO (09:02)
[2023-05-30] MEDS: FERROUS SULFATE 325 MG TABLET DR PO ×3 (09:02→16:59)
[2023-05-30] MEDS: FUROSEMIDE 40 MG TABLET PO (09:02)
[2023-05-30] MEDS: allopurinoL 300 MG TABLET PO (09:03)
[2023-05-30] MEDS: FUROSEMIDE INJ 40 MG/4 ML VIAL IV PUSH ×2 (09:05→16:59)
[2023-05-30] MEDS: POTASSIUM CHLORIDE 20 MEQ PACKET (FOR LIQUID) 40 MEQ PO (10:32)
--- NOTE | 2023-05-30 11:22 | PCRCNOTE ---
evaluated pt oxygen saturations. placed pt on 7L high flow NC, saturations 90-92% heart rate 86
[2023-05-30 17:05] LABS: Base Excess ABG 0.4 mmol/L (0-2); HCO3 ABG 22.3 mmol/L (23-29); Oxygen Content ABG 13.9 %vol (16.0-22.0); Oxygen Saturation ABG 94.4 % (95-97); Oxyhemoglobin 93.9 % (94-100); PCO2 ABG 27.2 mmHg (35-45); PO2 ABG 71.6 mmHg (75-85); Total Hemoglobin 10.5 g/dL (12.0-18.0); pH ABG 7.53 (7.35-7.45)
[2023-05-30 17:09] LABS: Device SIMPLE MASK; Modified Allen's Test Pass; Site Drawn LEFT RADIAL
[2023-05-30 17:16] LABS: Anion Gap 9 mmol/L (8-16); Blood Urea Nitrogen 22 mg/dL (7-18); Calcium 8.8 mg/dL (8.5-10.1); Carbon Dioxide 25 mmol/L (21-32); Chloride 102 mmol/L (98-108); Estimated CRCL calculation 36 ml/min; Estimated Glomerular Filt Rate 59; Glucose 142 mg/dL (70-99); Osmolality Calculated 287 mOsm/kg (285-295); Potassium 3.8 mmol/L (3.5-5.1); Sodium 136 mmol/L (136-145)
--- NOTE | 2023-05-30 18:20 | PM.TDS ---
Transfer Discharge Sum: Prov Provider Date of admission: 05/26/23 11:00 Primary care physician: Khushi Dawson NP Admitting clinician: Greg Sauer MD Consults: 05/25/23 Consult to Infection Control Routine Reason for Consult:: covid+ 05/30/23 Consult to Respiratory Therapy Routine Reason for Consult:: Can we please get her hi-flow or opti-flow oxygen. She's having difficulty maintaining 90% on 6 L NC. Thanks DS: Admitting Diagnosis Discharge Date 05/30 Admitting Diagnosis pneumonia DS: Discharge Diagnosis Discharge Diagnosis (1) Pneumonia: Qualifiers: Laterality: bilateral Lung location: lower lobe of lung Pneumonia type: due to unspecified organism Qualified Code(s): J18.9 - Pneumonia, unspecified organism Code(s): J18.9 - Pneumonia, unspecified organism Status: Acute Assessment and Plan: Bilateral lower lobe infiltrates worse on the left with left lower lobe bronchi and new oxygen demand. Patient currently on 2 liters/minute nasal cannula. Change antibiotics from Zosyn to Rocephin and azithromycin due to impaired renal function. Suspect bacterial pneumonia superimposed on recent COVID. Patient up walking and she stayed low we will start on breathing treatments Incentive spirometry 05/30-increased oxygen requirements overnight. Diffuse crackles with expiratory wheeze. Now on 6 L NC and barely satting 91%. Chest XR with worsening hazy and interstitial pulmonary disease, suggestive of worsening pulmonary edema, possible infection. Ordered opti-flow, hi-flow oxygen and continuous pulse ox Lasix 40 mg IVP once now Broaden antibiotics for HAP BNP elevated 2955, WBC 9.9 but she is immunosuppressed. Oncologist is recommending IVIG to help recover from infection. Needs transfer to [facility] (2) COVID: Code(s): U07.1 - COVID-19 Status: Acute Assessment and Plan: Patient has been COVID positive for 5 weeks the first 2 weeks were nearly asymptomatic, followed by 2 weeks of minor to moderate symptoms followed by 1 week of worsening dyspnea and fatigue which finally brought patient to hospital. Due to immune suppression medication Tecvayli for multiple myeloma as well as worsening renal function and duration of symptoms patient is not a candidate for antiviral therapy at this time. continue to titrate oxygenation and continue dexamethasone. (3) Hypoxia: Code(s): R09.02 - Hypoxemia Status: Acute Assessment and Plan: see 1 (4) Acute kidney injury superimposed on chronic kidney disease: Code(s): N17.9 - Acute kidney failure, unspecified; N18.9 - Chronic kidney disease, unspecified Status: Acute Assessment and Plan: Baseline GFR appears to be around 45 currently 26 with increased BUN and creatinine. Suspect dehydration related ARTIE on CKD due to pneumonia. Will give IV fluids and monitor. 05/27: No significant change in renal function while on IV fluids. Fluids discontinued and will recommend outpatient Nephrology follow up. 05/30- 0.94, BUN 19 (5) H/O von Willebrand's disease: Code(s): Z86.2 - Personal history of diseases of the blood and blood-forming organs and certain disorders involving the immune mechanism Status: Acute Assessment and Plan: Negative DVT and negative V/Q scan. Von Willebrand's is often protective against DVT. Will withhold anticoagulation for VTE prophylaxis for this reason. (6) D-dimer, elevated: Code(s): R79.89 - Other specified abnormal findings of blood chemistry Status: Acute Assessment and Plan: Lower extremity venous Dopplers negative for DVT and V/Q scan low probability for PE. Patient cannot undergo CTA at this time due to compromised renal function. Von Willebrand's disease is often protective against thromboembolism so CTA is not needed at this time. (7) H/O CHF: Code(s): Z86.79 - Personal history
--- NOTE | 2023-05-30 21:00 | PC.NURSE ---
This RN contacted [facility] for an ALS transfer from this facility to [facility]. [facility] stated they can only transfer ALS to [place].
--- NOTE | 2023-05-30 21:01 | PC.NURSE ---
Spoke with Zina on patient status. Member's VSS. She tolerating CPAP @ 96%. Patient was provided a bed. Will be going to [facility]-. Report called to David CERVANTES @ [facility].
--- NOTE | 2023-05-30 21:08 | PC.NURSE ---
This RN spoke w/Juliana who is w/[facility] about possible transfer from this facility to [facility]. A call placed out for transfer awaiting for reply.
--- NOTE | 2023-05-30 21:29 | PC.NURSE ---
[facility] has arrived to bean picker pt for transfer.
--- NOTE | 2023-05-30 21:50 | PC.NURSE ---
Patient was transferred to [place] per EMS. All belongings taken with patient. Patient's VSS. Going to [place] [id number] ICU. David CERVANTES at [facility] notified of patient's departure.
[2023-05-30 21:57] LABS: SARS-CoV-2 Ag Positive (Negative)
[2023-05-31 04:11] LABS: Legionella pneumophila Ag Ur Not Detected (Not Detected)
== END 2023-05-30 21:50 | disposition short-term general hospital (02) | DRG 177 ==
LOC: CHSED 15:42 → CHS2ND 17:20
PROVIDERS: Nurse Practitioner; Nurse Practitioner Acute Care; Nurse Practitioner Family; Admitting Provider Internal Medicine; Emergency Provider Emergency Medicine; PCP Nurse Practitioner Family; Visit Provider Internal Medicine
DX: U07.1 COVID-19 (principal); J18.9 Pneumonia, unspecified organism; C90.00 Multiple myeloma not having achieved remission; N17.9 Acute kidney failure, unspecified; I13.0 Hypertensive heart and chronic kidney disease with heart failure and stage 1 through stage 4 chronic kidney disease, or unspecified chronic kidney disease; D68.00 Von Willebrand disease, unspecified; E87.1 Hypo-osmolality and hyponatremia; R44.3 Hallucinations, unspecified; N18.9 Chronic kidney disease, unspecified; I50.9 Heart failure, unspecified; E03.9 Hypothyroidism, unspecified; K21.9 Gastro-esophageal reflux disease without esophagitis; R09.02 Hypoxemia; R79.1 Abnormal coagulation profile; H81.09 Meniere's disease, unspecified ear; G89.29 Other chronic pain; F32.A Depression, unspecified; I25.2 Old myocardial infarction; Z95.5 Presence of coronary angioplasty implant and graft
CPT/HCPCS: 36415; 36600; 70450; 71045; 71046; 78580; 80048; 80053; 81003; 82607; 82728; 82746; 82805; 83540; 83550; 83605; 83880; 84145; 84484; 85025; 85380; 86140; 87040; 87081; 87426; 87449; 87637; 87899; 93005; 93306; 93970; 94002; 94640; 96361; 96365; 99285; A9270; A9540; C9803; G0378; J0456; J0696; J1940; J2405; J2543; J3370; J7030; J7040; J8540